=== PATIENT | female | born 1955 | race Caucasian/White ===

== ENCOUNTER 2020-03-25 07:00 | Outpatient (CLI) | payer BC, SELFPAY ==
[2020-03-25 07:39] LABS: Alanine Aminotransferase 71 U/L (4-35); Albumin Level 4.6 g/dL (3.5-5.1); Alkaline Phosphatase 55 U/L (38-126); Aspartate Amino Transferase 110 U/L (14-36); Bilirubin,Total 0.7 mg/dL (0.2-1.3); Blood Urea Nitrogen 16 mg/dL (7-17); Calcium 9.4 mg/dL (8.4-10.2); Carbon Dioxide 30 mmol/L (22-30); Chloride 102 mmol/L (98-107); Cholesterol 169 mg/dL (0-200); Estimated Glomerular Filt Rate > 60; Glucose 111 mg/dL (65-105); HDL Direct 58 mg/dL; Potassium 4.5 mmol/L (3.4-5.0); Sodium 140 mmol/L (137-145); Triglycerides 118 mg/dL (<150)
[2020-03-25 07:50] LABS: LDL Cholesterol Direct 91 mg/dL
[2020-03-25 09:31] LABS: Vitamin D 25 Hydroxy 86.7 ng/mL
== END 2020-03-25 07:01 | disposition home or self-care (01) ==
PROVIDERS: PCP Family Medicine; Visit Provider Family Medicine
DX: E78.1 Pure hyperglyceridemia (principal); I10 Essential (primary) hypertension; E55.9 Vitamin D deficiency, unspecified; E03.9 Hypothyroidism, unspecified
CPT/HCPCS: 36415; 80053; 80061; 82306; 84443

== ENCOUNTER 2020-08-20 08:27 | Outpatient (CLI) | payer BC, SELFPAY ==
[2020-08-20 09:06] LABS: Alanine Aminotransferase 23 U/L (4-35); Albumin Level 4.5 g/dL (3.5-5.1); Alkaline Phosphatase 41 U/L (38-126); Anion Gap 8 mmol/L (8-16); Aspartate Amino Transferase 35 U/L (14-36); Bilirubin,Total 0.5 mg/dL (0.2-1.3); Blood Urea Nitrogen 18 mg/dL (7-17); Calcium 10.4 mg/dL (8.4-10.2); Carbon Dioxide 36 mmol/L (22-30); Chloride 98 mmol/L (98-107); Estimated Glomerular Filt Rate > 60; Glucose 116 mg/dL (65-105); Potassium 4.4 mmol/L (3.4-5.0); Sodium 142 mmol/L (137-145)
[2020-08-20 09:17] LABS: Parathyroid Intact 5.8 pg/mL (7.5-53.5)
[2020-08-20 09:36] LABS: Vitamin D 25 Hydroxy 54.2 ng/mL
== END 2020-08-20 08:28 | disposition home or self-care (01) ==
PROVIDERS: PCP Family Medicine; Visit Provider Internal Medicine Endocrinology, Diabetes & Metabolism
DX: M81.0 Age-related osteoporosis without current pathological fracture (principal)
CPT/HCPCS: 36415; 80053; 82306; 83970

== ENCOUNTER 2021-04-15 08:19 | Outpatient (CLI) | payer MEDICARE, SELFPAY ==
--- NOTE | ~2021-04-15 | MM_ITS ---
EXAMINATION: MM screening pretty BI w haley HISTORY: Screening mammogram TECHNIQUE: Craniocaudal and mediolateral oblique 3-D tomosynthesis images were obtained and synthetic 2-D images were generated. CAD analysis was submitted and interpreted. COMPARISON: 09/28/2019 diagnostic left mammogram and limited left breast ultrasound 09/10/2019 bilateral digital screening mammogram BREAST PARENCHYMAL COMPOSITION: There are scattered areas of fibroglandular density. FINDINGS: There is no evidence of suspicious mass, calcification, or architectural distortion to sugg est malignancy in either breast. There has been no suspicious interval change. IMPRESSION: 1. No mammographic evidence of malignancy. 2. Recommend routine screening mammography in one year. BI-RADS Category 1: Negative Reviewed, dictated and finalized at location A.
--- NOTE | ~2021-04-15 | XR_ITS ---
EXAMINATION: XR chest 2V DATE: 04/15/2021 09:29 INDICATION: Shortness of breath TECHNIQUE: PA and lateral views of the chest are obtained. COMPARISON: 04/12/2019 FINDINGS: The lungs are free of acute opacities. A calcified nodule of the right lung apex likely ref lects old granulomatous disease. There is no pleural effusion or pneumothorax. The cardiomediastinal silhouette is normal. There is moderate thoracic spondylosis. IMPRESSION: 1. No acute cardiopulmonary abnormality. Reviewed, dictated and finalized at location A.
[2021-04-15 09:57] LABS: Alanine Aminotransferase 25 U/L (4-35); Albumin Level 4.4 g/dL (3.5-5.1); Alkaline Phosphatase 41 U/L (38-126); Anion Gap 8 mmol/L (8-16); Aspartate Amino Transferase 37 U/L (14-36); Bilirubin,Total 0.4 mg/dL (0.2-1.3); Blood Urea Nitrogen 13 mg/dL (7-17); Calcium 9.8 mg/dL (8.4-10.2); Carbon Dioxide 30 mmol/L (22-30); Chloride 102 mmol/L (98-107); Cholesterol 190 mg/dL (0-200); Estimated Glomerular Filt Rate > 60; Glucose 102 mg/dL (65-105); HDL Direct 45 mg/dL; Magnesium 1.4 mg/dL (1.6-2.3); Sodium 140 mmol/L (137-145); Triglycerides 208 mg/dL (<150)
[2021-04-15 10:06] LABS: Hemoglobin A1C 5.9 % (<5.7)
[2021-04-15 10:08] LABS: LDL Cholesterol Direct 93 mg/dL
== END 2021-04-15 08:20 | disposition home or self-care (01) ==
LOC: ANHIMG 08:25
PROVIDERS: PCP Family Medicine; Visit Provider Physician Assistant
DX: Z12.31 Encounter for screening mammogram for malignant neoplasm of breast (principal); R73.09 Other abnormal glucose; E78.5 Hyperlipidemia, unspecified; R06.02 Shortness of breath; I10 Essential (primary) hypertension
CPT/HCPCS: 36415; 71046; 77063; 77067; 80053; 80061; 83036; 83735

== ENCOUNTER 2021-06-15 07:54 | Outpatient (CLI) | payer MEDICARE, SELFPAY ==
--- NOTE | ~2021-06-15 | DEXA_ITS ---
Bone Density Report Name: Hector Alvarado Age: 66 Sex: Female Ethnicity: White Date of : 1955 Indication: postmenopausal osteoporosis; monitoring treatment; height loss; prior fracture; hysterectomy; Referring Provider: Олег, Justin Conner Study: Bone densitometry was performed. Exam Date: June 15, 2021 Accession number: [id number] Bone Density: Region BMD T-score Z-score Classification AP Spine (L1-L4) 0.814 -2.1 -0.4 Osteopenia Femoral Neck (Left) 0.660 -1.7 -0.2 Osteopenia Total Hip (Left) 0.805 -1.1 0.1 Osteopenia Total Hip Bilateral Avg 0.801 -1.2 0.1 Osteopenia Femoral Neck (Right) 0.616 -2.1 -0.6 Osteopenia Total Hip (Right) 0.796 -1.2 0.0 Osteopenia World Health Organization criteria for BMD impression classify patients as: Normal (T-score at or above -1.0), Osteopenia (T-score between -1.0 and -2.5), or Osteoporosis (T-score at or below -2.5). 10-year Fracture Risk: FRAX not reported because: Treated for osteoporosis Previous Exams: Region Exam Age BMD T-score BMD Change BMD Change Date g/cm2 vs Baseline vs Previous AP Spine(L1-L4) 06/15/2021 66 0.814 -2.1 0.047(6.2%)* 0.047(6.2%)* 09/10/2019 64 0.766 -2.6 Total Hip(Left) 06/15/2021 66 0.805 -1.1 0.012(1.5%) 0.012(1.5%) 09/10/2019 64 0.793 -1.2 Total Hip(Right) 06/15/2021 66 0.796 -1.2 0.008(1.1%) 0.008(1.1%) 09/10/2019 64 0.787 -1.3 *Denotes significance at 95% confidence level, LSC for AP Spine = 0.022 g/cm2, LSC for Total Hip = 0.027 g/cm2 Clinical Information Provided by Patient: Has had a low trauma fracture Is being treated for osteoporosis Has used the following medications: Fosamax (i.e. alendronate), Vitamin D, Calcium Has the following medical conditions: Hysterectomy Patient maximum height was 66 Menopause Age: 42 Onset of menses at age 17 Number of children 1 Impression: The patient has low bone mass, based on the Total Spine T-score. The patient has risk factors, including: previous fracture. No significant bone loss was observed. Discussion: PATIENT UNDER TREATMENT WITH NO SIGNIFICANT BMD LOSS SINCE LAST EXAM. In an untreated patient, BMD typically declines with age. A lack of decline or gain is usually a sign that treatment is efficacious and fracture risk is reduced. It is important to ask patients whether they are taking their medications and to encourage continued and appropriate compliance with their osteoporosis therapies to reduc
== END 2021-06-15 07:55 | disposition home or self-care (01) ==
LOC: ANHIMG 07:57
PROVIDERS: PCP Family Medicine; Visit Provider Internal Medicine Endocrinology, Diabetes & Metabolism
DX: M81.0 Age-related osteoporosis without current pathological fracture (principal); M85.88 Other specified disorders of bone density and structure, other site; M85.852 Other specified disorders of bone density and structure, left thigh; M85.851 Other specified disorders of bone density and structure, right thigh
CPT/HCPCS: 77080

== ENCOUNTER 2021-08-10 08:31 | Outpatient (CLI) | payer MEDICARE, SELFPAY ==
--- NOTE | 2021-08-10 08:35 | ECG_ITS ---
Measurements Intervals [place] Rate: 82 P: 87 LA: 221 QRS: -34 QRSD: 86 T: 49 QT: 369 QTc: 433 Interpretive Statements SINUS RHYTHM WITH FIRST DEGREE AV BLOCK LEFT AXIS DEVIATION DELAYED PRECORDIAL R/S TRANSITION LOW QRS VOLTAGE IN PRECORDIAL LEADS INFERIOR INFARCT, AGE INDETERMINATE BASELINE ARTIFACT- I, II, III ABNORMAL ECG Electronically Signed On 08-10-2021 9:30:53 CDT by Vu Troncoso D.O.
[2021-08-10 09:27] LABS: Hemoglobin A1C 5.8 % (<5.7)
[2021-08-10 09:35] LABS: Alanine Aminotransferase 37 U/L (4-35); Albumin Level 4.6 g/dL (3.5-5.1); Alkaline Phosphatase 41 U/L (38-126); Anion Gap 6 mmol/L (8-16); Aspartate Amino Transferase 45 U/L (14-36); Bilirubin,Total 0.4 mg/dL (0.2-1.3); Blood Urea Nitrogen 13 mg/dL (7-17); Carbon Dioxide 31 mmol/L (22-30); Chloride 103 mmol/L (98-107); Cholesterol 173 mg/dL (0-200); Estimated Glomerular Filt Rate > 60; Glucose 108 mg/dL (65-110); HDL Direct 38 mg/dL; Magnesium 1.9 mg/dL (1.6-2.3); Potassium 4.3 mmol/L (3.4-5.0); Sodium 140 mmol/L (137-145); Triglycerides 209 mg/dL (<150)
[2021-08-10 09:45] LABS: LDL Cholesterol Direct 99 mg/dL
[2021-08-13 23:54] LABS: Vitamin D 1,25 (OH)2 Total 47 pg/mL (18-72); Vitamin D2 1,25 (OH)2 <8 pg/mL; Vitamin D3 1,25 (OH)2 47 pg/mL
== END 2021-08-10 08:32 | disposition home or self-care (01) ==
LOC: ANHLAB 08:35
PROVIDERS: PCP Family Medicine; Visit Provider Physician Assistant
DX: E55.9 Vitamin D deficiency, unspecified (principal); E78.5 Hyperlipidemia, unspecified; I10 Essential (primary) hypertension; R73.9 Hyperglycemia, unspecified; I44.0 Atrioventricular block, first degree
CPT/HCPCS: 36415; 80053; 80061; 82652; 83036; 83735; 93005

== ENCOUNTER 2021-09-29 08:34 | Emergency (ER) | payer MEDICARE, SELFPAY ==
[2021-09-29 08:52] VITALS: BP 151/90; PULSE 95; RESP 16; TEMP 36.7; O2SAT 97
--- NOTE | 2021-09-29 09:02 | ED.SKABFB ---
HPI - Skin/Abscess/Foreign Bdy General Chief complaint: Skin/Abscess/Foreign Body Stated complaint: Insect bite on Hand Time Seen by Provider: 09/29/21 08:55 Source: patient and RN notes reviewed Mode of arrival: ambulatory Limitations: no limitations History of Present Illness HPI narrative: Hector is a 66-year-old female patient who ambulated into the [facility]. Patient states she was working in her yard yesterday and woke up with 2-3 bites on her right hand wrist and right fifth finger. The area on her right fifth finger is a small abrasion and open area. Patient states that patient states she has not used any [id number] medications at home. Patient states the area is warm and hot to touch. Patient states she had a similar issue with a spider bite last year that turned into cellulitis MD complaint: insect bite/sting Related Data Home Medications Medication Instructions Recorded Confirmed alendronate 70 mg tablet 70 mg PO WEEKLY 09/10/20 08/07/21 Allergies Allergy/AdvReac Type Severity Reaction Status Date / Time latex Allergy Unknown Rash Verified 09/29/21 09:03 Review of Systems Review of Systems: CONSTITUTIONAL: Denies body aches, fever, chills, or sweats. EYES: Denies visual changes, redness, or discharge. ENT: Denies rhinorrhea, congestion, sore throat, or otalgia. CARDIOVASCULAR: Denies chest pain, palpitations, or edema. RESPIRATORY: Denies cough or dyspnea. GASTROINTESTINAL: Denies abdominal pain, nausea, vomiting, or diarrhea. GENITOURINARY: Denies dysuria or hematuria. SKIN: Denies rash, itching, + warm, red, bites on right hand, wrist, and fifth finger MUSCULOSKELETAL: Denies back pain, joint pain, or myalgia. NEUROLOGIC: Denies headache, numbness, tingling, or weakness. PSYCH: Denies depression or anxiety. All systems reviewed & are unremarkable except as noted in HPI and below PMFSH Past Medical History Medical History Abnormal mammogram Brain aneurysm had coiling done Depression Gastric outlet obstruction Gastroesophageal reflux disease without esophagitis GERD (gastroesophageal reflux disease) Hiatal hernia Hypertension Osteoporosis Positive colorectal cancer screening using Cologuard test Situational depression Surgical History Surgical History H/O colonoscopy (~09/2019) repeat 5 years H/O: hysterectomy Family History Family History Father Family history of emphysema Family history of alcoholism Mother Family history of chronic obstructive pulmonary disease Other Family history of dementia Hypertension Social History Social History Social History: She lives at home. Retired. She does have living will and POA- her daughter, Hallie Stroud. Smoking status: Former smoker Second hand tobacco smoke exposure: Yes Smoking end date: 10/24/14 Alcohol intake: never Comments At time of signature, I have reviewed and agree with nursing past medical, surgical, social and family history unless otherwise noted. Please see nursing chart for further information. There is no relevant family history pertinent to the presenting complaint Exam Narrative: GENERAL: Well-appearing, well-nourished, and in no acute distress. HEAD: Normocephalic, atraumatic. EYES: EOMI. No redness or drainage. Conjunctivae normal. ENT: Mucous membranes pink and moist. Nares clear. No rhinorrhea. NECK: Normal AROM. Supple. No lymphadenopathy. ABDOMEN: Soft, nontender, nondistended, MUSCULOSKELETAL: No bony tenderness. EXTREMITIES: Normal range of motion. No edema. SKIN: Warm, dry, no rash. Capillary refill normal. Normal skin turgor. small 1cm erythemic area to right wrist, right fifth finger, and right medial palm. warm to touch, NEURO: No focal deficits. Lex
[2021-09-29] MEDS: methylPREDNISolone SOD SUCC 125 MG VIAL IM (09:13)
== END 2021-09-29 09:22 | disposition home or self-care (01) ==
PROVIDERS: Emergency Provider Nurse Practitioner Family; PCP Family Medicine
DX: L03.113 Cellulitis of right upper limb (principal); L03.011 Cellulitis of right finger; L25.9 Unspecified contact dermatitis, unspecified cause; Z87.891 Personal history of nicotine dependence; K21.9 Gastro-esophageal reflux disease without esophagitis; I10 Essential (primary) hypertension; M81.0 Age-related osteoporosis without current pathological fracture
CPT/HCPCS: 96372; 99213; G0463; J2930

== ENCOUNTER 2021-10-05 08:11 | Outpatient (CLI) | payer MEDICARE, SELFPAY ==
--- NOTE | ~2021-10-05 | NM_ITS ---
EXAMINATION: NM andrzej stress w perfusion DATE: 10/05/2021 11:13 INDICATION: Abnormal electrocardiogram TECHNIQUE: Rest images were obtained following intravenous administration of 9.8 mCi Tc99m tetrofosmi n (Myoview). The patient was infused intravenously with Lexiscan (Regadenoson). Then, 30.8 mCi Tc99m tetrofosmin (Myoview) was administered intravenously, and stress images were obtained. Data was recon structed into short axis and horizontal and vertical long axis SPECT images. Gated SPECT images were also obtained. COMPARISON: None. FINDINGS: There is no definite reversible or fixed perfusion abnormality to suggest ischemia or infar ction. There is normal left ventricular chamber size, wall motion and ejection fraction. Left ventr icular ejection fraction measures >70%. IMPRESSION: 1. Normal myocardial perfusion at rest and during stress. 2. Left ventricular ejection fraction measuring >70%. Reviewed, dictated and finalized at location A. YSIS REGISTERED NURSE
--- NOTE | 2021-10-05 08:27 | EST_ITS ---
Patient Info Name: Hector Alvarado Age: 66 years : 1955 Gender: Female Ht: 65 in Wt: 204 lbs BSA: 2.10 m2 HR: 80 bpm BP: 121 / 85 mmHg Heart Rhythm: Sinus Rhythm Exam Date: 10/05/2021 10:07 AM Exam Location: [facility] Stress Patient Status: Outpatient Admit Date: 10/05/2021 Staff Ordering Physician: Bianca Hardy PA-C Attending Provider: iBanca Hardy PA-C Exercise Technologist: Iliana Dong CT Exercise Physician: Vu Troncoso DO Exam Type: CA stress andrzej w NM Study Info Indications R94.31 - Abnormal electrocardiogram ECG EKG A regadenoson stress test was performed. Summary 1. 1. Negative lexiscan stress test for ischemic ST changes by ECG criteria. 2. 2. Transient ectopic atrial tachycardia with Lexiscan. 3. 3. Nuclear scan to follow and will be reported separately. Please correlate with it. 4. 4. Patient informed of the above results. Protocol: Lexiscan Stress ECG Details Stage: REST Duration (min): 0 min : 54 sec HR (bpm): 82 SBP (mmHg): 121 DBP (mmHg): 85 Stage: REST Duration (min): 1 min : 21 sec HR (bpm): 78 SBP (mmHg): 121 DBP (mmHg): 85 Stage: REST Duration (min): 9 min : 50 sec HR (bpm): 75 SBP (mmHg): 121 DBP (mmHg): 85 Stage: STAGE 1 Duration (min): 0 min : 59 sec HR (bpm): 110 SBP (mmHg): 122 DBP (mmHg): 99 Stage: RECOVERY Duration (min): 1 min : 0 sec HR (bpm): 102 SBP (mmHg): 122 DBP (mmHg): 99 Stage: RECOVERY Duration (min): 2 min : 0 sec HR (bpm): 97 SBP (mmHg): 122 DBP (mmHg): 99 Stage: RECOVERY Duration (min): 3 min : 0 sec HR (bpm): 93 SBP (mmHg): 139 DBP (mmHg): 82 Stage: RECOVERY Duration (min): 3 min : 57 sec HR (bpm): 100 SBP (mmHg): 139 DBP (mmHg): 82 Rest HR: 75 bpm Peak HR: 118 bpm Rest Sys BP: 121 mmHg Peak Sys BP: 139 mmHg Max Pred HR: 155 bpm % Max Pred HR: 76 % Target HR: 132 bpm Max RPP: 16,402 bpm*mmHg Termination Reason: Completed protocol Cardiac Symptoms: Shortness of breath, Nausea Total Time: 1 min : 0 sec Rest Aceves BP: 85 mmHg Peak Aceves BP: 82 mmHg Total Dose: 0.4 mg Resting ECG Sinus rhythm, cannot r/o septal infarct, borderline T wave in high lateral leads. Stress ECG No ST changes. Arrhythmias Transient ectopic atrial tachycardia with lexiscan. Report Signatures
== END 2021-10-05 08:12 | disposition home or self-care (01) ==
LOC: ANHCARD 08:15
PROVIDERS: PCP Family Medicine; Visit Provider Physician Assistant
DX: R94.31 Abnormal electrocardiogram [ECG] [EKG] (principal)
CPT/HCPCS: 78452; 93017; A9502; J2785

== ENCOUNTER 2022-02-09 12:13 | Outpatient (CLI) | payer MEDICARE, SELFPAY ==
--- NOTE | ~2022-02-09 | XR_ITS ---
EXAMINATION: HAND-GATITO ARTHRITIS 3+VIEWS DATE: 02/09/2022 12:52 INDICATION: Chronic bilateral hand pain TECHNIQUE: Posteroanterior, lateral, and oblique views of the left and of the right hands as well as a ballcatchers view of both hands were obtained. COMPARISON: None. FINDINGS: 2 mm ulnar positive variance at both the left and right wrists. Alignment is otherwise normal at the bilateral hands. No fracture. 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 Mild osteoarthritis involving the ma jority the remaining joints in the bilateral hands and wrists. No erosions to suggest inflammatory ar thritis. IMPRESSION: 1. Typical distribution of polyarticular osteoarthritis, severe at the left first carpometacarpal ana nt and mild to moderate at multiple additional joints at the bilateral hands and wrists. Reviewed, dictated and finalized at location A. IMPRESSION: 1. Typical distribution of polyarticular osteoarthritis, severe at the left fir st carpometacarpal joint and mild to moderate at multiple additional joints at the bilateral hands and wrists.
== END 2022-02-09 12:14 | disposition home or self-care (01) ==
LOC: ANHIMG 12:21
PROVIDERS: PCP Family Medicine; Visit Provider Physician Assistant
DX: M79.643 Pain in unspecified hand (principal); M19.042 Primary osteoarthritis, left hand; M19.041 Primary osteoarthritis, right hand
CPT/HCPCS: 73130

== ENCOUNTER 2022-02-12 07:42 | Outpatient (CLI) | payer MEDICARE, SELFPAY ==
[2022-02-12 08:27] LABS: Alanine Aminotransferase 56 U/L (4-35); Alkaline Phosphatase 37 U/L (38-126); Anion Gap 7 mmol/L (8-16); Aspartate Amino Transferase 80 U/L (14-36); Bilirubin,Total 0.4 mg/dL (0.2-1.3); Blood Urea Nitrogen 20 mg/dL (7-17); Calcium 8.5 mg/dL (8.4-10.2); Carbon Dioxide 34 mmol/L (22-30); Chloride 99 mmol/L (98-107); Cholesterol 150 mg/dL (0-200); Estimated Glomerular Filt Rate > 60; Glucose 101 mg/dL (65-110); HDL Direct 39 mg/dL; Potassium 3.6 mmol/L (3.4-5.0); Sodium 140 mmol/L (137-145); Triglycerides 180 mg/dL (<150)
[2022-02-12 08:31] LABS: Hemoglobin A1C 5.5 % (<5.7)
[2022-02-12 08:38] LABS: LDL Cholesterol Direct 74 mg/dL
== END 2022-02-12 07:43 | disposition home or self-care (01) ==
PROVIDERS: PCP Family Medicine; Visit Provider Physician Assistant
DX: I10 Essential (primary) hypertension (principal); Z13.1 Encounter for screening for diabetes mellitus; R73.03 Prediabetes; Z13.220 Encounter for screening for lipoid disorders
CPT/HCPCS: 36415; 80053; 80061; 83036

== ENCOUNTER 2022-02-16 08:36 | Outpatient (CLI) | payer MEDICARE, SELFPAY ==
[2022-02-16 09:38] LABS: Alanine Aminotransferase 51 U/L (4-35); Albumin Level 4.5 g/dL (3.5-5.1); Alkaline Phosphatase 40 U/L (38-126); Aspartate Amino Transferase 54 U/L (14-36); Bilirubin,Total 0.2 mg/dL (0.2-1.3)
[2022-02-16 10:28] LABS: Hepatitis B Surface Antigen Negative (Negative)
[2022-02-16 10:34] LABS: HAV RESULT Negative (Negative); Hepatitis B Core IgM Result Negative (Negative)
[2022-02-16 10:46] LABS: Hepatitis C Virus Antibody Negative (Negative)
== END 2022-02-16 08:37 | disposition home or self-care (01) ==
LOC: ANHLAB 08:46
PROVIDERS: PCP Family Medicine; Visit Provider Physician Assistant
DX: R79.89 Other specified abnormal findings of blood chemistry (principal); R10.9 Unspecified abdominal pain
CPT/HCPCS: 36415; 80074; 80076

== ENCOUNTER 2022-03-02 08:42 | Outpatient (CLI) | payer MEDICARE, SELFPAY ==
--- NOTE | ~2022-03-02 | US_ITS ---
US abdomen limited INDICATION: Abdomen pain. Elevated liver enzymes. PROCEDURE: Realtime right upper abdominal ultrasound. COMPARISON: CT dated 04/12/2019 FINDINGS: Pancreatic echogenicity is slightly increased, nonspecific. No discrete pancreatic mass. L iver echotexture is increased, consistent with fatty infiltration. There is normal directional flow in the portal vein. The gallbladder is normal without stones, gallbladder wall thickening or pericholecystic fluid. Comm on bile duct measures 3 mm. No sonographic Hamilton's sign. IMPRESSION: 1: Hepatic steatosis. Reviewed, dictated and finalized at location A. IMPRESSION: 1: Hepatic steatosis.
== END 2022-03-02 08:43 | disposition home or self-care (01) ==
PROVIDERS: PCP Family Medicine; Visit Provider Physician Assistant
DX: R79.89 Other specified abnormal findings of blood chemistry (principal); K76.0 Fatty (change of) liver, not elsewhere classified
CPT/HCPCS: 76705

== ENCOUNTER 2022-04-16 10:04 | Outpatient (CLI) | payer MEDICARE, SELFPAY ==
--- NOTE | ~2022-04-16 | MM_ITS ---
EXAMINATION: MM screening pretty BI w haley HISTORY: Screening mammogram TECHNIQUE: Craniocaudal and mediolateral oblique 3-D tomosynthesis images were obtained and synthetic 2-D images were generated. CAD analysis was submitted and interpreted. COMPARISON: 04/15/2021 bilateral screening mammogram 09/28/2019 diagnostic left mammogram and limited left breast ultrasound 09/10/2019 bilateral screening mammogram BREAST PARENCHYMAL COMPOSITION: There are scattered areas of fibroglandular density. FINDINGS: There is no evidence of suspicious mass, calcification, or architectural distortion to sugg est malignancy in either breast. There has been no suspicious interval change. IMPRESSION: 1. No mammographic evidence of malignancy. 2. Recommend routine screening mammography in one year. BI-RADS Category 1: Negative Reviewed, dictated and finalized at location A.
== END 2022-04-16 10:05 | disposition home or self-care (01) ==
LOC: ANHIMG 10:07
PROVIDERS: PCP Family Medicine; Visit Provider Physician Assistant
DX: Z12.31 Encounter for screening mammogram for malignant neoplasm of breast (principal)
CPT/HCPCS: 77063; 77067

== ENCOUNTER 2022-08-19 07:36 | Outpatient (CLI) | payer MEDICARE, SELFPAY ==
[2022-08-19 08:12] LABS: Alanine Aminotransferase 47 U/L (6-35); Albumin Level 4.4 g/dL (3.5-5.1); Alkaline Phosphatase 47 U/L (38-126); Anion Gap 9 mmol/L (8-16); Aspartate Amino Transferase 54 U/L (14-36); Bilirubin,Total 0.4 mg/dL (0.2-1.3); Blood Urea Nitrogen 14 mg/dL (7-17); Calcium 8.8 mg/dL (8.4-10.2); Carbon Dioxide 29 mmol/L (22-30); Chloride 102 mmol/L (98-107); Cholesterol 163 mg/dL (0-200); Estimated Glomerular Filt Rate > 60; Glucose 119 mg/dL (65-110); HDL Direct 43 mg/dL; Potassium 4.4 mmol/L (3.4-5.0); Sodium 140 mmol/L (137-145); Triglycerides 178 mg/dL (<150)
[2022-08-19 08:23] LABS: LDL Cholesterol Direct 93 mg/dL
== END 2022-08-19 07:37 | disposition home or self-care (01) ==
PROVIDERS: PCP Family Medicine; Visit Provider Physician Assistant Medical
DX: E78.2 Mixed hyperlipidemia (principal)
CPT/HCPCS: 36415; 80053; 80061

== ENCOUNTER 2022-10-21 08:52 | Emergency (ER) | payer MEDICARE, SELFPAY ==
[2022-10-21 09:08] VITALS: BP 94/76; PULSE 100; RESP 20; TEMP 37.2; O2SAT 98
--- NOTE | 2022-10-21 09:37 | ED.GENADULT ---
HPI - General Adult General Chief complaint: Upper Respiratory Infection Stated complaint: runny nose, cough, sore throat Time Seen by Provider: 10/21/22 09:37 Source: patient, RN notes reviewed and old records reviewed Mode of arrival: ambulatory Limitations: no limitations History of Present Illness HPI narrative: 67-year-old female presents to the [facility] with complaints of runny nose, cough, sore throat for 2 days. States that she has not taken anything due to work and being on work call. Denies fevers, chest pain. Denies abdominal pain, nausea vomiting or diarrhea. Related Data Home Medications Medication Instructions Recorded Confirmed zoledronic acid 5 mg/100 mL in See Rx Instructions .Route .COMPLEX 02/09/22 10/21/22 mannitol 5 %-water intravenous piggybck (Reclast) Allergies Allergy/AdvReac Type Severity Reaction Status Date / Time latex Allergy Unknown Rash Verified 10/21/22 09:02 Review of Systems Review of Systems: All systems reviewed & are unremarkable except as noted in HPI and below Constitutional: Constitutional: Reports as per HPI and Reports fatigue Eyes: Eyes: Reports no additional eye complaints ENT: Reports as per HPI, Reports nasal congestion and Reports sore throat Cardiovascular: Cardiovascular: Reports no additional cardiovascular complaints, Denies chest pain and Denies dyspnea Respiratory: Respiratory: Reports as per HPI, Denies chest congestion, Reports cough and Denies dyspnea Gastrointestinal: Gastrointestinal: Reports no additional gastrointestinal complaints, Denies abdominal pain, Denies nausea and Denies vomiting Musculoskeletal: Musculoskeletal: Reports no additional musculoskeletal complaints Integumentary/Breasts: Skin/Breast: Reports system reviewed and no additional complaints, except as docu Neurologic: Reports system reviewed and no additional complaints, except as documented Psychiatric: Psychiatric: Reports no additional psychiatric complaints Allergic/Immunologic: Allergic/Immunologic: Reports no additional allergic/immunologic complaints PMFSH Past Medical History Medical History Abnormal mammogram Brain aneurysm had coiling done Depression Gastric outlet obstruction Gastroesophageal reflux disease without esophagitis GERD (gastroesophageal reflux disease) Hiatal hernia Hypertension Osteoporosis Positive colorectal cancer screening using Cologuard test Situational depression Surgical History Surgical History H/O colonoscopy (~09/2019) repeat 5 years H/O: hysterectomy Family History Family History Father Family history of emphysema Family history of alcoholism Mother Family history of chronic obstructive pulmonary disease Other Family history of dementia Hypertension Social History Social History Social History: She lives at home. Retired. She does have living will and POA- her daughter, Hallie Stroud. Smoking status: Never smoker Second hand tobacco smoke exposure: Yes Smoking end date: 10/24/14 Alcohol intake: never Substance use: never Substance use type: does not use Lack of Transportation: No Lack of Food: Never True Current Housing: I Have Housing Concerned About Future Housing: No Difficulty Paying Gas/Electric Bills: No Difficulty Paying for Meds: No Currently Unemployed: No Education: Decline to Answer Difficulty w/ Childcare or Family Care: No Gender identity (if verbalized by the patient): Female Spiritual care concerns: No Agree to blood products: Yes Comments At the time of my signature, I reviewed and agree with the nursing past medical, surgical, social, and family history. There is no relevant family history pertinent to the patient complaint. Ex
== END 2022-10-21 10:28 | disposition home or self-care (01) ==
PROVIDERS: Emergency Provider Nurse Practitioner; PCP Family Medicine
DX: J32.9 Chronic sinusitis, unspecified (principal); J40 Bronchitis, not specified as acute or chronic; J06.9 Acute upper respiratory infection, unspecified; Z20.822 Contact with and (suspected) exposure to COVID-19; Z87.891 Personal history of nicotine dependence; K21.9 Gastro-esophageal reflux disease without esophagitis; I10 Essential (primary) hypertension; M81.0 Age-related osteoporosis without current pathological fracture
CPT/HCPCS: 87081; 87426; 87804; 87880; 99213; C9803; G0463

== ENCOUNTER 2022-12-16 14:34 | Inpatient (IN) | payer MEDICARE, SELFPAY ==
[2022-12-16] VITALS (43 sets, daily range): BP systolic 76–117; BP diastolic 66–99; PULSE 96–208; RESP 13–36; TEMP 36.1–37.1; O2SAT 90–100; BMI 32.0
--- NOTE | ~2022-12-16 | CT_ITS ---
EXAMINATION: CTA chest PE protocol DATE: 12/16/2022 16:46 INDICATION: Tachycardia. TECHNIQUE: Computed tomography angiography (CTA) of the chest was performed with 100 mL Omnipaque-350 intravenous contrast timed to evaluate the pulmonary arteries. Coronal maximum intensity projection 3D-reconstructions were created by the technologist. Automated exposure control and iterative reconst ruction technique were employed. The dose-length product was 496.91 mGy-cm. COMPARISON: CT abdomen and pelvis 04/12/2019 FINDINGS: There is mild scarring at the lung apices. There is mild emphysema. There is smooth septal thickening in the lungs with groundglass opacities in the inferior lungs, consistent with pulmonary e yoshi. There are small pleural effusions. Cardiomegaly is noted. There is a small pericardial effusion . There is no pulmonary embolus. There is mild thoracic spondylosis. IMPRESSION: 1. No pulmonary embolus. 2. Moderate pulmonary edema. 3. Small pleural effusions. 4. Mild emphysema. 5. Small pericardial effusion. Reviewed, dictated and finalized at location A. LE DIPPER
--- NOTE | ~2022-12-16 | CT_ITS ---
EXAMINATION: CTA chest PE protocol DATE: 12/18/2022 13:28 INDICATION: Elevated d-dimer TECHNIQUE: Computed tomography angiography (CTA) of the chest was performed with 100 mL Omnipaque-350 intravenous contrast timed to evaluate the pulmonary arteries. Coronal maximum intensity projection 3D-reconstructions were created by the technologist. Automated exposure control and iterative reconst ruction technique were employed. Exam dose: 658.32 mGy-cm total exam DLP. COMPARISON: December 16, 2022 CT pulmonary scan FINDINGS: There is diagnostic contrast enhancement of the pulmonary arteries. Due to motion the perip heral pulmonary arteries are not optimally evaluated compared to 12/16/2022, but no main pulmonary art damian, lobar or segmental pulmonary artery embolism is identified. Cardiomegaly and mild pericardial effusion are noted. No thoracic aortic aneurysm is evident. There is atherosclerosis of the aorta, great vessels and raoul nary arteries. Mild prominence of the hilar and mediastinal lymph nodes may be reactive. Mild bilateral apical scarring. Mild emphysematous changes of the lungs. Bilateral lower lobe dependent atelectasis. Small pleural effusions, right greater than left. Diffuse idiopathic skeletal hyperostosis of the thoracic spine. Mild anterior wedge chronic compressi on fracture deformity of T11. IMPRESSION: Limited evaluation of the peripheral pulmonary arteries due to motion; no central, lobar or segmental pulmonary embolism Cardiomegaly, mild pericardial effusion Mild pleural effusions, right greater than left Mild emphysema Bilateral dependent mild lower lobe atelectasis Reviewed, dictated and finalized at Location A. Reviewed, dictated and finalized at location A. ICAL PROGRAM MANAGER IMPRESSION: Limited evaluation of the peripheral pulmonary arteries due to mot ion; no central, lobar or segmental pulmonary embolism Cardiomegaly, mild pericardial effusion Mild pleural effusions, right greater than left Mild emphysema Bilateral dependent mild lower lobe atelectasis
--- NOTE | ~2022-12-16 | US_ITS ---
EXAMINATION: US venous doppler [facility] DATE: 12/18/2022 10:54 INDICATION: elevated d dimer . TECHNIQUE: Grayscale images without and with compression and Doppler images of the bilateral lower ex tremity veins were obtained. COMPARISON: None FINDINGS: The right common femoral vein, profunda (deep) femoral vein, femoral vein, popliteal vein, peroneal v ein, posterior tibial veins, gastrocnemius vein, and greater saphenous vein are patent. The left common femoral vein, profunda femoral vein, femoral vein, popliteal vein, peroneal vein, pos terior tibial veins, gastrocnemius vein, and greater saphenous vein are patent. IMPRESSION: 1. Patent bilateral lower extremity veins. No evidence of deep venous thrombosis. Reviewed, dictated and finalized at location K. NG CAR CONDUCTOR IMPRESSION: 1. Patent bilateral lower extremity veins. No evidence of deep venous thrombos is.
--- NOTE | 2022-12-16 14:43 | ECG_ITS ---
Measurements Intervals [place] Rate: 206 P: PA: 0 QRS: -40 QRSD: 98 T: 130 QT: 227 QTc: 421 Interpretive Statements ATRIAL FIBRILLATION WITH RAPID VENTRICULAR RESPONSE MARKED LEFT AXIS DEVIATION [QRS AXIS < -30] LOW QRS VOLTAGE IN PRECORDIAL LEADS [QRS DEFLECTION < 1.0 mV IN CHEST LEADS] CONSIDER PREVIOUS ANTERIOR [place] COMPARED TO ECG 08/10/2021 09:15:48 ATRIAL FIBRILLATION NOW REPLACES SINUS RHYTHM Electronically Signed On 12-17-2022 15:04:49 [employer] by Jd Saldaña M.D.
--- NOTE | 2022-12-16 14:43 | ED.GENADULT ---
HPI - General Adult General Chief complaint: Chest Pain Stated complaint: diff breathing Time Seen by Provider: 12/16/22 14:41 History of Present Illness HPI narrative: 67-year-old female with history of hypertension and GERD presented to the [facility] for evaluation of worsening shortness of breath and tachycardia. Patient denies any prior COVID infection patient reports she just recently flew back from [place] and started having worsening shortness of breath. Patient states she called EMS due to worsening heart rate worsening shortness of breath and some associated chest pain. Patient reports she flew in from [place] on Tuesday and started having worsening shortness of breath on Tuesday. Patient did not measure her heart rate. Patient states the respiratory symptoms worsens this morning. Patient denies any chest pain but reports she did have chest pressure and chest tightness during this. Patient has no prior history of MA. Patient reports did have a stress test that was negative approximate 1 year ago. Related Data Home Medications Medication Instructions Recorded Confirmed zoledronic acid 5 mg/100 mL in See Rx Instructions .Route .COMPLEX 02/09/22 10/21/22 mannitol 5 %-water intravenous piggybck (Reclast) Allergies Allergy/AdvReac Type Severity Reaction Status Date / Time latex Allergy Unknown Rash Verified 10/21/22 09:02 Review of Systems Review of Systems: CONSTITUTIONAL: Denies fever, chills, or sweats. EYES: Denies visual changes, redness, or discharge. ENT: Denies rhinorrhea, congestion, sore throat, or otalgia. CARDIOVASCULAR: See HPI RESPIRATORY: See HPI GASTROINTESTINAL: Denies abdominal pain, nausea, vomiting, or diarrhea. GENITOURINARY: Denies dysuria or hematuria. SKIN: Denies rash or itching. MUSCULOSKELETAL: Denies back pain, joint pain, or myalgia. NEUROLOGIC: Denies headache, numbness, or weakness. [facility] Past Medical History Medical History (Updated 12/16/22 @ 20:15 by Maria Victoria Wright NP) Abnormal mammogram Brain aneurysm had coiling done Depression Diverticulosis Gastric outlet obstruction Gastroesophageal reflux disease without esophagitis GERD (gastroesophageal reflux disease) Hiatal hernia Hypertension Osteoporosis Positive colorectal cancer screening using Cologuard test Situational depression Surgical History Surgical History (Updated 12/16/22 @ 20:05 by Maria Victoria Wright NP) Cataract extraction status H/O colonoscopy (~09/2019) repeat 5 years H/O rectal polypectomy H/O: hysterectomy History of appendectomy History of bladder surgery S/P ORIF (open reduction internal fixation) fracture right humerus Family History Family History Father Family history of emphysema Family history of alcoholism Mother Family history of chronic obstructive pulmonary disease Sibling Brain aneurysm Other Family history of dementia Hypertension Social History Social History (Updated 12/16/22 @ 20:01 by Maria Victoria Wrgiht NP) Social History: She lives at home. She is recently . 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 She does have living will and POA- her daughter, Hallie Stroud. She lost her 2 step children. They not too long ago. code status full code Smoking status: Never smoker Second hand tobacco smoke exposure: Yes Smoking end date: 10/24/14 Alcohol intake: never Substance use: never Substance use type: does not use Lack of Transportation: No Lack of Food: Never True Current Housing: I Have Housing Concerned About Future Housing: No Difficulty Paying Gas/Electric Bills: No Difficulty Paying for Meds: No Currently Unemployed: No Education: Decline to Answer Difficulty w/ Childcare or Family Care: No Living arrangements: with family Gender identity (if verbalized by the patient): Female Spiritual care concerns
[2022-12-16] MEDS: dilTIAZem HCl INJ 25 MG/5 ML VIAL 10 MG IV PUSH ×2 (14:47→16:08)
[2022-12-16] MEDS: SODIUM CHLORIDE 0.9% IV 1,000 ML 999 ML IV CONT (14:49)
[2022-12-16] MEDS: dilTIAZem 100 MG/100 ML 100 MG/100 ML BAG IV CONT (14:50)
--- NOTE | 2022-12-16 14:53 | PC.NURSE ---
erp at bedside, verbal order to titrade cardizem up to 10 at this time.
--- NOTE | 2022-12-16 15:09 | PC.NURSE ---
per erp notification, titrate cardizem to 15 at this time for rate.
[2022-12-16] MEDS: ASPIRIN 81 MG CHEWABLE TABLET 324 MG PO (15:33)
[2022-12-16 15:52] LABS: Basophils Absolute Auto 0.1 K/mm3 (0.0-0.1); Basophils Percent Auto 0.6 % (0.2-1.2); Eosinophils Percent Auto 0.1 % (0-4.4); Hematocrit 41.1 % (37.0-47.0); Hemoglobin 13.9 g/dL (12.0-15.0); Immature Granulocyte Absolute 0.05 K/mm3 (0.00-0.031); Immature Granulocyte Percent A 0.6 % (0-0.5); Lymphocytes Absolute Auto 0.64 K/mm3 (0.9-3.2); Lymphocytes Percent Auto 7.6 % (18.3-44.2); Mean Corpuscular HGB Conc 33.8 g/dl (32-36); Mean Corpuscular Hemoglobin 32.5 pg (26-34); Mean Platelet Volume 10.9 fl (7.4-10.4); Monocytes Absolute Auto 0.6 K/mm3 (0.1-0.6); Monocytes Percent Auto 6.5 % (2.6-8.5); Neutrophils Absolute Auto 7.2 K/mm3 (1.3-6.7); Neutrophils Percent Auto 84.6 % (45.5-73.1); Platelet Count Result 144 k/mm3 (150-375); Red Blood Count 4.28 M/mm3 (4.2-5.4); Red Cell Distribution Width 12.9 % (11.5-14.5); White Blood Count 8.5 K/mm3 (4.5-10.0)
[2022-12-16 16:02] LABS: INR 1.1; Partial Thromboplastin Time 26.5 SECONDS (22.3-36.8); Prothrombin Time 14.1 Seconds (11.1-14.7)
[2022-12-16 16:07] LABS: Alanine Aminotransferase 34 U/L (6-35); Albumin Level 4.3 g/dL (3.5-5.1); Alkaline Phosphatase 38 U/L (38-126); Anion Gap 9 mmol/L (8-16); Aspartate Amino Transferase 39 U/L (14-36); Bilirubin,Total 0.5 mg/dL (0.2-1.3); Blood Urea Nitrogen 13 mg/dL (7-17); Calcium 8.7 mg/dL (8.4-10.2); Carbon Dioxide 27 mmol/L (22-30); Chloride 98 mmol/L (98-107); Estimated CRCL calculation 86 ml/min; Estimated Glomerular Filt Rate > 60; Glucose 143 mg/dL (65-110); Magnesium 1.5 mg/dL (1.6-2.3); Potassium 3.7 mmol/L (3.4-5.0); Sodium 134 mmol/L (137-145)
[2022-12-16 16:18] LABS: Troponin I 0.023 ng/mL (0.000-0.034)
[2022-12-16] MEDS: SODIUM CHLORIDE 0.9% IV 1,000 ML 500 ML IV CONT (16:23)
[2022-12-16 16:36] LABS: Influenza A QL RT-PCR Negative (Negative); Influenza B QL RT-PCR Negative (Negative); SARS-CoV-2 RNA PCR Positive
--- NOTE | 2022-12-16 17:36 | PM.IMHP ---
H&P: HPI History of Present Illness Date/Time: 12/16/22 17:36 Chief Complaint: Chest pain Narrative: This is a 67-year-old female patient who came to the emergency room with complaints of shortness of breath. The patient stated that she checked her pulse oximeter at home and her pulse ox was 86% on room air home. The patient stated she has been fully vaccinated for COVID she also has a history of hypertension incurred. The patient was short of breath wheezing and tachycardic. The patient stated that she flew in from [place] on Tuesday and started having worsening shortness of breaths on Tuesday. She denied any fever chills. She has had no history of atrial fibrillation. Her sodium is slightly low at 134. Her magnesium is slightly low at 1.4. Troponin is 0.03 and 0.097. BNP 2500. The patient was negative for influenza A/B and was positive for COVID. The patient was placed on oxygen at 2 L per nasal cannula. The patient was started on Decadron and remdesivir. Patient was found to be in AFib with RVR she was given Cardizem IV push, aspirin, and IV fluids. Cardiology has been consulted ER. Her EKG was AFib with RVR. Patient was admitted to inpatient status on the date of service of 12/16/2022. Review of Systems Review of Systems: See HPI All systems reviewed & are unremarkable except as noted in HPI and below Constitutional: Constitutional: Reports as per HPI and Reports no additional constitutional complaints Eyes: Eyes: Reports as per HPI and Reports no additional eye complaints ENT: Reports system reviewed and no additional complaints, except as documented and Reports Normal hearing present Cardiovascular: Cardiovascular: Reports no additional cardiovascular complaints Respiratory: Respiratory: Reports no additional respiratory complaints and Reports no additional respiratory complaints Gastrointestinal: Gastrointestinal: Reports as per HPI and Reports no additional gastrointestinal complaints Musculoskeletal: Musculoskeletal: Reports no additional musculoskeletal complaints Integumentary/Breasts: Skin/Breast: Reports system reviewed and no additional complaints, except as docu and Reports as per HPI Neurologic: Reports system reviewed and no additional complaints, except as documented, Reports as per HPI and Reports Normal hearing present Psychiatric: Psychiatric: Reports no additional psychiatric complaints and Reports as per HPI Endocrine: Endocrine: Reports no additional endocrine complaints Hematologic/Lymphatic: Hematologic/Lymphatic: Reports no additional hematologic/lymphatic complaints Allergic/Immunologic: Allergic/Immunologic: Reports no additional allergic/immunologic complaints [facility] Past Medical History Medical History (Updated 12/16/22 @ 20:15 by Maria Victoria Wright NP) Abnormal mammogram Brain aneurysm had coiling done Depression Diverticulosis Gastric outlet obstruction Gastroesophageal reflux disease without esophagitis GERD (gastroesophageal reflux disease) Hiatal hernia Hypertension Osteoporosis Positive colorectal cancer screening using Cologuard test Situational depression Surgical History Surgical History (Updated 12/16/22 @ 20:05 by Maria Victoria Wright NP) Cataract extraction status H/O colonoscopy (~09/2019) repeat 5 years H/O rectal polypectomy H/O: hysterectomy History of appendectomy History of bladder surgery S/P ORIF (open reduction internal fixation) fracture right humerus Family History Family History Father Family history of emphysema Family history of alcoholism Mother Family history of chronic obstructive pulmonary disease Sibling Brain aneurysm Other Family history of dementia Hypertension Social History Social History (Updated 12/16/22 @ 20:01 by Maria Victoria Wright NP) Social History: She lives at home. She is recently . 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
[2022-12-16 18:32] LABS: Alanine Aminotransferase 32 U/L (6-35); Estimated CRCL calculation 101 ml/min; Estimated Glomerular Filt Rate > 60
[2022-12-16 18:48] LABS: Thyroid Stimulating Hormone Reflex 0.926 uIU/mL (0.465-4.68)
[2022-12-16 18:56] LABS: NT Pro B Type Natriuretic Pept 2500 pg/mL (19.9-100); Troponin I 0.097 ng/mL (0.000-0.034)
--- NOTE | 2022-12-16 18:58 | ECG_ITS ---
Measurements Intervals [place] Rate: 119 P: [place]: 0 QRS: -31 QRSD: 88 T: 92 QT: 334 QTc: 470 Interpretive Statements ATRIAL FIBRILLATION WITH RAPID VENTRICULAR RESPONSE LEFT AXIS DEVIATION [QRS AXIS < -30] POSSIBLE ANTERIOR MYOCARDIAL INFARCTION , OF INDETERMINATE AGE [30 ms Q WAVE IN V3/V4, OR R < 0.2 mV IN V4] COMPARED TO ECG 12/16/2022 14:43:08 VENTRICULAR RESPONSE TO AFIB IS COMING UNDER CONTROL Electronically Signed On 12-17-2022 15:11:47 FIELD RING ASSEMBLER by Jd Saldaña M.D.
[2022-12-16 19:45] LABS: Appearance Urine Clear (Clear); Bilirubin Urine Negative (Negative); Blood Urine 2+ (Negative); Color Urine Yellow (Yellow); Glucose Urine UA Negative (Negative); Ketones Urine Negative (Negative); Leukocyte Esterase Ur Trace LEU/UL (Negative); Nitrate Urine Negative (Negative); Protein Urine Trace mg/dL (Negative); Specific Grav Ur <= 1.005 (1.001-1.035); Urobilinogen Urine 0.2 mg/dL (<2.0); pH Urine 6.5 (5.0-9.0)
--- NOTE | 2022-12-16 19:45 | PC.NURSE ---
assumed care. pt resting per stretcher in no distress. pt states she became sob after getting up to use bedside commode. 02 per n/c at 3L in place 02 sat=97. pt denies any pain. cardizem drip infusing without difficulty. pt updated on plan of care. will continue to monitor.
[2022-12-16 19:50] LABS: Mucus Urine Rare /lpf; Squamous Epithelial Cell Urine Many /hpf (Few); WBC Urine 0-3 /hpf
[2022-12-16] MEDS: REMDESIVIR 200 MG/NS 250 ML 200 MG/250 ML BAG 250 MG IVPB (19:50)
[2022-12-16 19:55] LABS: Add Urine Microscopic? YES
[2022-12-16] MEDS: MAGNESIUM SULF 2 GM/WATER 50ML 2 GM/50 ML BAG IVPB (21:04)
[2022-12-16] MEDS: dilTIAZem 100 MG/100 ML 100 MG/100 ML BAG 15 MG (21:11)
[2022-12-16] MEDS: ENOXAPARIN 100 MG/ML SYRINGE 86 MG SUB-Q (22:19)
[2022-12-16] MEDS: guaiFENesin/DEXTROMETHORPHAN 10 ML UDC PO (22:20)
[2022-12-16] MEDS: PANTOPRAZOLE SODIUM IV 40 MG VIAL IV PUSH (22:22)
--- NOTE | 2022-12-16 22:59 | ADMGEN ---
This patient, Hector Alvarado, was admitted to IMU Room 200-01 at 2155. Patient/family oriented to hospital policies and general routines including ID bracelet, bed and alarms, visiting hours, pain management, procedures, bathroom and other care routines, personal items, smoking policy, room service/diet, and visiting hours. Information on how to activate the Rapid Response Team has been discussed. Patient/Family are encouraged to report perceived risks to care and to ask questions if they do not understand what they are told or what they should do.
[2022-12-17] VITALS (16 sets, daily range): BP systolic 93–119; BP diastolic 52–82; PULSE 58–117; RESP 16–20; TEMP 36.2–36.6; O2SAT 94–99
--- NOTE | 2022-12-17 | ECHO_ITS ---
Patient Info Name: Hector Alvarado Age: 67 years : 1955 Gender: Female Ht: 66 in Wt: 198 lbs BSA: 2.08 m2 HR: 105 bpm BP: 93 / 66 mmHg Heart Rhythm: Atrial Fibrillation Exam Date: 12/17/2022 2:21 PM Exam Location: [facility] Pulmonary Patient Status: Inpatient Admit Date: 12/16/2022 Staff Ordering Physician: Maria Victoria Wright NP Message And Delivery Service Pricer: Mike Hamilton RDCS, RT Attending Provider: Jd Cruz MD Referring Physician: Adriana JORGE; Exam Type: CA echo doppler color flow Study Info Indications I48.1 - Persistent atrial fibrillation Complete two-dimensional, color flow and Doppler transthoracic echocardiogram is performed. Strain analysis performed. Summary 1. Complete two-dimensional, color flow and Doppler transthoracic echocardiogram is performed. 2. Normal left ventricular size with global systolic function that appears to be mildly reduced. 3. Very small amount of mitral regurgitation. 4. Mildly enlarged RA and RV. 5. Small pericardial effusion which appears to be anterior to the right ventricle. 6. Atrial fibrillation. Left Ventricle Left ventricular chamber dimension is normal. Left ventricular systolic function is mildly reduced, estimated at 40-45%. The left ventricular diastolic function is normal. Right Ventricle Right ventricular chamber dimension is mildly enlarged. Left Atria Left atrial chamber dimension is normal. Right Atria Right atrial chamber dimension is mildly enlarged. Aortic Valve The aortic valve is trileaflet. There is mild aortic valve sclerosis. Pulmonic Valve The pulmonic valve is normal. There is trace pulmonic regurgitation. Mitral Valve The mitral valve has normal leaflets. There is mild mitral valve regurgitation. Tricuspid Valve The tricuspid valve leaflets are normal. Pericardium/Pleural The pericardium appears normal. There is small pericardial effusion. Aorta The aortic root size at the sinus of Valsalva is normal. Left Ventricular Outflow Tract Name Value Normal LVOT 2D LVOT Diameter 2.0 cm LVOT Doppler LVOT Peak Gradient 1 mmHg LVOT Mean Gradient 0 mmHg LVOT VTI 15 cm LVOT VTI/AV VTI Ratio 0.7 LVOT Stroke Volume 48 ml LVOT CO 1.8 l/min LVOT CI 0.9 l/min/m2 Mitral Valve Name Value Normal MV Doppler MV Decel [place] 711 cm/s2 MV PHT 50 ms MV Area (PHT) 4.4 cm2 4.0-5.0 MV Diastolic Function MV E Peak Velocity 124 cm/s MV A Peak Velocity
[2022-12-17 04:51] LABS: Basophils Percent Auto 0.2 % (0.2-1.2); Hematocrit 39.9 % (37.0-47.0); Hemoglobin 13.2 g/dL (12.0-15.0); Immature Granulocyte Absolute 0.02 K/mm3 (0.00-0.031); Immature Granulocyte Percent A 0.4 % (0-0.5); Lymphocytes Absolute Auto 0.98 K/mm3 (0.9-3.2); Lymphocytes Percent Auto 21.3 % (18.3-44.2); Mean Corpuscular HGB Conc 33.1 g/dl (32-36); Mean Corpuscular Hemoglobin 31.7 pg (26-34); Mean Corpuscular Volume 95.9 fl (80-100); Mean Platelet Volume 11.6 fl (7.4-10.4); Monocytes Absolute Auto 0.1 K/mm3 (0.1-0.6); Monocytes Percent Auto 2.4 % (2.6-8.5); Neutrophils Absolute Auto 3.5 K/mm3 (1.3-6.7); Neutrophils Percent Auto 75.7 % (45.5-73.1); Platelet Count Result 145 k/mm3 (150-375); Red Blood Count 4.16 M/mm3 (4.2-5.4); Red Cell Distribution Width 12.8 % (11.5-14.5); White Blood Count 4.6 K/mm3 (4.5-10.0)
[2022-12-17 05:04] LABS: Alanine Aminotransferase 31 U/L (6-35); Albumin Level 4.1 g/dL (3.5-5.1); Alkaline Phosphatase 35 U/L (38-126); Anion Gap 7 mmol/L (8-16); Aspartate Amino Transferase 36 U/L (14-36); Bilirubin,Total 0.5 mg/dL (0.2-1.3); Blood Urea Nitrogen 13 mg/dL (7-17); Calcium 8.3 mg/dL (8.4-10.2); Carbon Dioxide 25 mmol/L (22-30); Chloride 99 mmol/L (98-107); Estimated CRCL calculation 104 ml/min; Estimated Glomerular Filt Rate > 60; Glucose 146 mg/dL (65-110); Lactic Acid Reflex 2.8 mmol/L (0.7-2.0); Magnesium 2.2 mg/dL (1.6-2.3); Potassium 3.9 mmol/L (3.4-5.0); Sodium 131 mmol/L (137-145)
[2022-12-17 05:10] LABS: INR 1.2; Prothrombin Time 14.5 Seconds (11.1-14.7)
[2022-12-17 05:52] LABS: Thyroid Stimulating Hormone Reflex 0.632 uIU/mL (0.465-4.68)
[2022-12-17] MEDS: guaiFENesin/DEXTROMETHORPHAN 10 ML UDC PO ×2 (07:01→21:37)
[2022-12-17 07:44] LABS: Reflex Lactic Acid Yes or No Add Lactic
[2022-12-17 08:32] LABS: Lactic Acid 1.6 mmol/L (0.7-2.0)
[2022-12-17] MEDS: METOPROLOL TARTRATE 25 MG TABLET PO (08:40)
--- NOTE | 2022-12-17 10:31 | PM.CNCAR ---
Assessment and Plan Assessment and plan (1) Atrial fibrillation with rapid ventricular response: Code(s): I48.91 - Unspecified atrial fibrillation Status: Acute Plan This is a 67-year-old lady with hypertension that was diagnosed several years ago when her was ill prior to his . She has been stable in that regard on high dose of lisinopril with some hydrochlorothiazide. She enters the hospital with atrial fib with RVR resulting in some pulmonary edema that cortez Alfaro started about 4 days ago. She was progressively getting more dyspneic with this but did not specifically recognize the tachycardia with palpitations. She has been placed on IV diltiazem overnight her heart rate is better controlled now the diltiazem drip has been interrupted as I came in the room it is not running currently. She has been anticoagulated with Lovenox. At this point I am going to recommend reducing her lisinopril dosage so that I can add some beta-armando to her regimen for rate control. I will start metoprolol succinate for that. I will start her on systemic anticoagulation with apixaban. I will give her 1 more dose of IV furosemide today as she does have some pulmonary congestion that persists on physical exam. At this point I think the optimal plan would be rate control with anticoagulation for the short term and then attempting cardioversion once she has been anticoagulated for 4-6 weeks. We do know that she had normal LV systolic function in 2020 on a nuclear stress test. There is no known history of coronary disease or concomitant lung disease that should be playing a role with any of this. Obviously her coronavirus infection along with underlying hypertension is the substrate for this. Will follow her with you in the hospital and after discharge and hopefully if AFib persists she will be successfully cardioverted in the short term as an outpatient Jd Saldaña MD [facility] History of Present Illness History of Present Illness Consult date/time: 12/17/22 10:31 Reason For Visit: covid, atrial fib, pulmonary edema Narrative: This is a 67-year-old woman I am seeing in the request of the hospitalist for consultation for management of atrial fibrillation. She has no previous history of cardiac problems specifically and came into the hospital through the emergency room last evening because of significant air hunger/dyspnea was found to have evidence of pulmonary edema and AFib with RVR. The patient is known to me as an employee of [employer]. She has a background of some hypertension for which she has been treated with lisinopril and hydrochlorothiazide but no other cardiac risk factors. She has no pre-existing history of lung disease. She was out of state in [place] a number of days ago attending the /memorial service for her sister and on Tuesday of this past week began to feel ill with some shortness of breath. Prior to that she had some severe pain in the left side of her neck and a severe headache for about 24 hours she took a lot of nonsteroidal anti-inflammatory medication at that time. Those symptoms resolved but over the last several days she has been getting progressively more breathless when this became severe yesterday an ambulance was called she was brought to the emergency room. Her evaluation showed evidence of her AFib with RVR and some pulmonary edema. The pulmonary edema was seen on a CT scan of her chest I do not see that a standard chest x-ray was performed. She was placed on diltiazem for some rate control I believe was given a dose of furosemide and anticoagulated with Lovenox. In this setting I am seeing her in consultation. There is a nuclear stress test in the record from September of 2021 showing no evidence of myocardial ischemia and a normal LV ejection fraction. Echocardiogram I believe has been ordered but has yet to be performed. In the emergency room upon presentation she also tested
[2022-12-17] MEDS: METOPROLOL SUCCINATE EXT REL 50 MG TABCR PO (11:10)
[2022-12-17] MEDS: FUROSEMIDE 20 MG TABLET PO (11:10)
[2022-12-17] MEDS: APIXABAN 5 MG TABLET PO ×2 (11:10→21:39)
[2022-12-17] MEDS: PANTOPRAZOLE SODIUM IV 40 MG VIAL IV PUSH ×2 (11:11→21:38)
--- NOTE | 2022-12-17 11:30 | PM.IMPN ---
Progress Note: A&P Assessment and Plan (1) Atrial fibrillation with rapid ventricular response: Code(s): I48.91 - Unspecified atrial fibrillation Status: Acute Assessment and Plan: Appreciate cardiology consultation, diltiazem drip has been discontinued, beta-armando will be started today with metoprolol, anticoagulation with Eliquis IV diuresis with Lasix x1 Rate controlled off the diltiazem drip at this time, blood pressure stable but on the low side Echo ordered and pending Plan is for attempted cardioversion in 4-6 weeks after anticoagulation and recovery from her COVID per cardiology recommendations (2) COVID: Code(s): U07.1 - COVID-19 Status: Acute Assessment and Plan: Stable on 3 L at this time, continue dexamethasone and remdesivir Lactic acidosis is improved, resolved Check CRP and D-dimer Q 48 hours (3) Hyponatremia: Code(s): E87.1 - Hypo-osmolality and hyponatremia Status: Acute Assessment and Plan: Somewhat worsened today, will reassess after Lasix Plan Home O2 eval pending for tomorrow morning DVT prophylaxis with Eliquis GI prophylaxis with PPI Code status full code Subjective Date/time seen: 12/17/22 11:30 Interval history: No overnight events noted. No nausea, vomiting or diarrhea. No fevers or chills. She denies chest pain, palpitations. Still with some shortness of breath with exertion. She is worried about getting oxygen set up while her son in law is here to help. She would like to go home no later than Tuesday to arrange for pet care. Review of Systems Review of Systems: 12 point review of systems was assessed and was negative except as noted in the HPI Exam Narrative: General: No acute distress, alert and oriented per baseline HEENT: Atraumatic, normocephalic, mucous membranes moist CV: Regular rate and rhythm, S1, S2 Lungs: Crackles at bases, diminished throughout, no wheeze Abdomen: Soft, nontender, nondistended Extremities: Normal to inspection, no edema Skin: No rashes noted, no lesions or wounds seen Psych: Very anxious, euthymic Objective Data Vital Signs Vital Signs: Vital Signs - 24 hr 12/16/22 14:50 12/16/22 14:52 12/16/22 14:53 Temperature Pulse Rate 172 H 170 H 180 H Respiratory Rate Blood Pressure 111/99 H 111/99 H Pulse Oximetry Oxygen Delivery Oxygen Flow Rate 12/16/22 14:54 12/16/22 14:55 12/16/22 15:04 Temperature 98.8 F Pulse Rate 205 H Respiratory Rate 28 H Blood Pressure 111/99 H Pulse Oximetry 94 92 94 Oxygen Delivery Nasal Cannula Nasal Cannula Nasal Cannula Oxygen Flow Rate 2 2 3 12/16/22 14:42 12/16/22 14:45 12/16/22 14:47 Temperature Pulse Rate 208 H 202 H 199 H Respiratory Rate 36 H 22 H 23 H Blood Pressure 111/99 H Pulse Oximetry 92 92 93 Oxygen Delivery Oxygen Flow Rate 12/16/22 15:00 12/16/22 15:08 12/16/22 15:09 Temperature Pulse Rate 188 H 182 H Respiratory Rate 31 H Blood Pressure 117/85 Pulse Oximetry 90 93 Oxygen Delivery Nasal Cannula Oxygen Flow Rate 3 12/16/22 15:10 12/16/22 15:22 12/16/22 16:18 Temperature Pulse Rate 182 H 165 H 127 H Respiratory Rate 28 H 31 H 19 Blood Pressure 102/73 91/68 L Pulse Oximetry 92 92 94 Oxygen Delivery Oxygen Flow Rate 12/16/22 15:30 12/16/22 15:31 12/16/22 15:40 Temperature Pulse Rate 151 H 193 H 146 H Respiratory Rate 27 H 30 H 25 H Blood Pressure 105/82 Pulse Oximetry 91 92 Oxygen Delivery Oxygen Flow Rate 12/16/22 15:46 12/16/22 15:50 12/16/22 16:00 Temperature Pulse Rate 156 H 150 H 151 H Respiratory Rate 25 H 30 H 26 H Blood Pressure 111/86 Pulse Oximetry 93 94 Oxygen Delivery Oxygen Flow Rate 12/16/22 16:01 12/16/22 16:10 12/16/22 16:13 Temperature Pulse Rate 151 H 126 H 144 H Respiratory Rate 25 H 25 H 26 H Blood Pressure 95/79 L 99/66 L Pulse Oximetry 94 97 94 Oxygen D
[2022-12-17 12:59] LABS: CRP 3.9 mg/dL (<1.0)
[2022-12-17] MEDS: busPIRone HCL 5 MG TABLET BY MOUTH (17:07)
[2022-12-17] MEDS: LORazepam INJ (*CRX) 2 MG/ML VIAL 0.5 MG IV PUSH (21:37)
[2022-12-17] MEDS: REMDESIVIR 100 MG/NS 250 ML 100 MG/250 ML BAG 250 MG IVPB (21:39)
[2022-12-18] VITALS (11 sets, daily range): BP systolic 103–113; BP diastolic 60–82; PULSE 53–139; RESP 16–24; TEMP 36.1–36.4; O2SAT 93–96
[2022-12-18] MEDS: LORazepam INJ (*CRX) 2 MG/ML VIAL 0.5 MG IV PUSH (04:10)
[2022-12-18 04:50] LABS: Basophils Percent Auto 0.1 % (0.2-1.2); Hematocrit 40.3 % (37.0-47.0); Hemoglobin 13.2 g/dL (12.0-15.0); Immature Granulocyte Absolute 0.05 K/mm3 (0.00-0.031); Immature Granulocyte Percent A 0.3 % (0-0.5); Lymphocytes Absolute Auto 1.76 K/mm3 (0.9-3.2); Lymphocytes Percent Auto 12.3 % (18.3-44.2); Mean Corpuscular HGB Conc 32.8 g/dl (32-36); Mean Corpuscular Hemoglobin 31.7 pg (26-34); Mean Corpuscular Volume 96.9 fl (80-100); Mean Platelet Volume 11.7 fl (7.4-10.4); Monocytes Absolute Auto 0.7 K/mm3 (0.1-0.6); Monocytes Percent Auto 4.7 % (2.6-8.5); Neutrophils Absolute Auto 11.8 K/mm3 (1.3-6.7); Neutrophils Percent Auto 82.6 % (45.5-73.1); Platelet Count Result 145 k/mm3 (150-375); Red Blood Count 4.16 M/mm3 (4.2-5.4); Red Cell Distribution Width 12.9 % (11.5-14.5); White Blood Count 14.3 K/mm3 (4.5-10.0)
[2022-12-18] MEDS: METOPROLOL TARTRATE INJ 5 MG/5 ML VIAL IV PUSH (04:54)
[2022-12-18 04:59] LABS: INR 1.4; Prothrombin Time 16.9 Seconds (11.1-14.7)
[2022-12-18 05:05] LABS: Alanine Aminotransferase 28 U/L (6-35); Alkaline Phosphatase 35 U/L (38-126); Anion Gap 7 mmol/L (8-16); Aspartate Amino Transferase 32 U/L (14-36); Bilirubin,Total 0.4 mg/dL (0.2-1.3); Blood Urea Nitrogen 17 mg/dL (7-17); Calcium 8.6 mg/dL (8.4-10.2); Carbon Dioxide 27 mmol/L (22-30); Chloride 103 mmol/L (98-107); Estimated CRCL calculation 89 ml/min; Estimated Glomerular Filt Rate > 60; Glucose 131 mg/dL (65-110); Potassium 4.1 mmol/L (3.4-5.0); Sodium 137 mmol/L (137-145)
--- NOTE | 2022-12-18 08:13 | PM.IMPN ---
Progress Note: A&P Assessment and Plan (1) Atrial fibrillation with rapid ventricular response: Code(s): I48.91 - Unspecified atrial fibrillation Status: Acute Assessment and Plan: Appreciate cardiology consultation, diltiazem drip has been discontinued Metoprolol + Eliquis initiated Rate elevated overnight, metoprolol increased, blood pressure stable Echo ordered and report pending Plan is for attempted cardioversion in 4-6 weeks after anticoagulation and recovery from her COVID per cardiology recommendations (2) COVID: Code(s): U07.1 - COVID-19 Status: Acute Assessment and Plan: Weaned to 2L nc, continue dexamethasone and remdesivir Lactic acidosis is improved, resolved Check CRP and D-dimer Q 48 hours Thrombocytopenia mild and stable, monitor 12/18: D-dimer elevated at 1.1, check CTA + LE dopplers (3) Hyponatremia: Code(s): E87.1 - Hypo-osmolality and hyponatremia Status: Acute Assessment and Plan: resolved Plan Home O2 eval pending DVT prophylaxis with Eliquis GI prophylaxis with PPI Code status full code Subjective Date/time seen: 12/18/22 08:13 Interval history: No overnight events noted. No nausea, vomiting or diarrhea. No fevers or chills. She denies chest pain, palpitations. Still with some shortness of breath with exertion. She is worried about getting oxygen set up while her son in law is here to help. She would like to go home no later than Tuesday to arrange for pet care. Review of Systems Review of Systems: 12 point review of systems was assessed and was negative except as noted in the HPI Exam Narrative: General: No acute distress, alert and oriented per baseline HEENT: Atraumatic, normocephalic, mucous membranes moist CV: Regular rate and rhythm, S1, S2 Lungs: Crackles at bases, diminished throughout, no wheeze Abdomen: Soft, nontender, nondistended Extremities: Normal to inspection, no edema Skin: No rashes noted, no lesions or wounds seen Psych: Very anxious, euthymic Objective Data Vital Signs Vital Signs: Vital Signs - 24 hr 12/17/22 08:40 12/17/22 11:10 12/17/22 12:00 Temperature 97.9 F Pulse Rate 104 H 95 95 Respiratory Rate 20 Blood Pressure 97/77 L Pulse Oximetry 99 Oxygen Delivery Oxygen Flow Rate 12/17/22 08:30 12/17/22 08:30 12/17/22 10:00 Temperature Pulse Rate 106 H 104 H Respiratory Rate Blood Pressure Pulse Oximetry 96 Oxygen Delivery Nasal Cannula Oxygen Flow Rate 3 12/17/22 14:00 12/17/22 12:00 12/17/22 16:00 Temperature 97.3 F L Pulse Rate 99 114 H Respiratory Rate 16 Blood Pressure 119/82 Pulse Oximetry 98 97 Oxygen Delivery Nasal Cannula Oxygen Flow Rate 3 12/17/22 16:00 12/17/22 16:00 12/17/22 18:00 Temperature Pulse Rate 115 H 105 H Respiratory Rate Blood Pressure Pulse Oximetry 95 Oxygen Delivery Nasal Cannula Oxygen Flow Rate 2 12/17/22 20:00 12/17/22 23:12 12/17/22 20:00 Temperature 97.2 F L 97.6 F Pulse Rate 58 L 106 H Respiratory Rate 18 18 Blood Pressure 110/66 119/70 Pulse Oximetry 98 97 97 Oxygen Delivery Nasal Cannula Oxygen Flow Rate 2 12/17/22 20:00 12/17/22 22:00 12/18/22 00:00 Temperature Pulse Rate 96 117 H 105 H Respiratory Rate Blood Pressure Pulse Oximetry Oxygen Delivery Oxygen Flow Rate 12/18/22 00:00 12/18/22 04:54 12/18/22 02:00 Temperature Pulse Rate 139 H 109 H Respiratory Rate Blood Pressure Pulse Oximetry 95 Oxygen Delivery Nasal Cannula Oxygen Flow Rate 1.5 12/18/22 04:00 12/18/22 04:00 12/18/22 04:00 Temperature 97.6 F Pulse Rate 126 H 111 H Respiratory Rate 20 Blood Pressure 113/69 Pulse Oximetry 95 96 Oxygen Delivery Nasal Cannula Oxygen Flow Rate 1.5 12/18/22 06:00 Temperature Pulse Rate 112 H Respiratory Rate Blood Pressure Pulse Oximetry Oxygen Deliv
--- NOTE | 2022-12-18 08:24 | PM.PNCARD ---
Progress Note: A&P Assessment and Plan (1) Atrial fibrillation with rapid ventricular response: Code(s): I48.91 - Unspecified atrial fibrillation Status: Acute Plan Patient is much improved clinically with heart rate control and some diuresis. Hopefully her oxygen can be weaned down to room air today. She is only on 1 L per nasal cannula at this time. Unfortunately I was unable to read her echocardiogram from yesterday as the [employer] application on the computer is not working this morning. I have advanced her metoprolol dosage to 100 mg to provide better rate control. Gave her an extra IV dose of metoprolol early this morning as her heart rate was up in the 130 range although she was asymptomatic with this. If she is hemodynamically stable with acceptable heart rate control and weaned down to room air I believe discharge this afternoon is reasonable. I would send her home on the 10 mg lisinopril dosage and metoprolol XL 100 mg per day as well as apixaban. I will arrange for office follow-up and anticipate attempting cardioversion in approximately 1 month Jd Saldaña MD [facility] Subjective Date/time seen: Date of service: 12/18/22 08:24 Interval history: Follow-up visit in this 67-year-old patient with: Recent onset of atrial fibrillation with RVR presenting with CHF secondary to this. Patient is doing much better now that heart rate is controlled and has received some diuresis. She feels essentially well this morning oxygen is now down to 1 L per nasal cannula. On admission patient also tested positive for coronavirus likely triggering this event. Exam Const: General: comfortable and no acute distress Other: Pleasant comfortable white female offers no complaints resting comfortably in bed HENMT: Mouth: Yes moist mucous membranes Eyes: Sclera: sclerae normal Neck: Neck: supple and no JVD Resp: Effort & Inspection: normal respiratory effort Auscultation: clear to auscultation bilaterally Cardio: Rate: regular rate Rhythm: abnormal rhythm irregularly irregular GI: GI Palp: Yes Soft to palpation Auscultation: normal bowel sounds Skin: General skin exam: normal color Neuro: Other: Alert and oriented x3 Extrem: Other: Good perfusion, no edema Objective Data Vital Signs Vital Signs: Vital Signs - 24 hr 12/17/22 08:40 12/17/22 11:10 12/17/22 12:00 Temperature 36.6 C Pulse Rate 104 H 95 95 Respiratory Rate 20 Blood Pressure 97/77 L Pulse Oximetry 99 Oxygen Delivery Oxygen Flow Rate 12/17/22 08:30 12/17/22 08:30 12/17/22 10:00 Temperature Pulse Rate 106 H 104 H Respiratory Rate Blood Pressure Pulse Oximetry 96 Oxygen Delivery Nasal Cannula Oxygen Flow Rate 3 12/17/22 14:00 12/17/22 12:00 12/17/22 16:00 Temperature 36.3 C L Pulse Rate 99 114 H Respiratory Rate 16 Blood Pressure 119/82 Pulse Oximetry 98 97 Oxygen Delivery Nasal Cannula Oxygen Flow Rate 3 12/17/22 16:00 12/17/22 16:00 12/17/22 18:00 Temperature Pulse Rate 115 H 105 H Respiratory Rate Blood Pressure Pulse Oximetry 95 Oxygen Delivery Nasal Cannula Oxygen Flow Rate 2 12/17/22 20:00 12/17/22 23:12 12/17/22 20:00 Temperature 36.2 C L 36.4 C Pulse Rate 58 L 106 H Respiratory Rate 18 18 Blood Pressure 110/66 119/70 Pulse Oximetry 98 97 97 Oxygen Delivery Nasal Cannula Oxygen Flow Rate 2 12/17/22 20:00 12/17/22 22:00 12/18/22 00:00 Temperature Pulse Rate 96 117 H 105 H Respiratory Rate Blood Pressure Pulse Oximetry Oxygen Delivery Oxygen Flow Rate 12/18/22 00:00 12/18/22 04:54 12/18/22 02:00 Temperature Pulse Rate 139 H 109 H Respiratory Rate Blood Pressure Pulse Oximetry 95 Oxygen Delivery Nasal Cannula Oxygen Flow Rate 1.5 12/18/22 04:00 12/18/22 04:00 12/18/22 04:00 Temperature 36.4 C Pulse Rate 126 H 111 H Respiratory Rate 20 Blood Pressure 113/69 P
[2022-12-18] MEDS: PANTOPRAZOLE SODIUM IV 40 MG VIAL IV PUSH (08:44)
[2022-12-18] MEDS: lisinopriL 10 MG TABLET PO (08:45)
[2022-12-18] MEDS: APIXABAN 5 MG TABLET PO (08:45)
[2022-12-18] MEDS: guaiFENesin/DEXTROMETHORPHAN 10 ML UDC PO (08:45)
[2022-12-18] MEDS: METOPROLOL SUCCINATE EXT REL 100 MG TABCR PO (10:35)
[2022-12-18] MEDS: busPIRone HCL 5 MG TABLET BY MOUTH (13:50)
--- NOTE | 2022-12-18 15:18 | PM.DS ---
DS: Admitting Diagnosis Discharge Date 12/18/22 Admitting Diagnosis sob DS: Discharge Diagnosis Discharge Diagnosis (1) Atrial fibrillation with rapid ventricular response: Code(s): I48.91 - Unspecified atrial fibrillation Status: Acute Assessment and Plan: Appreciate cardiology consultation, diltiazem drip has been discontinued Metoprolol + Eliquis initiated Rate elevated overnight, metoprolol increased, blood pressure stable Echo ordered and report pending Plan is for attempted cardioversion in 4-6 weeks after anticoagulation and recovery from her COVID per cardiology recommendations (2) COVID: Code(s): U07.1 - COVID-19 Status: Acute Assessment and Plan: Weaned to 2L nc, continue dexamethasone and remdesivir Lactic acidosis is improved, resolved Check CRP and D-dimer Q 48 hours Thrombocytopenia mild and stable, monitor 12/18: D-dimer elevated at 1.1, check CTA + LE dopplers Update: CTA + dopplers neg for PE, f/u with cardio for echo results and outpatient CV (3) Hyponatremia: Code(s): E87.1 - Hypo-osmolality and hyponatremia Status: Acute Assessment and Plan: resolved Plan Home O2 eval pending DVT prophylaxis with Eliquis GI prophylaxis with PPI Code status full code DS: Summary Hospital Course Hospital Course: 67-year-old female complaining was shortness of breath, found to be in AFib with RVR as well as COVID positive. Cardiology was consulted and started her on Eliquis, metoprolol and lisinopril. She was also started on remdesivir dexamethasone because she was requiring oxygen. She is able to be weaned to room air. Remdesivir was discontinued. She will complete a 10 day course of dexamethasone outpatient. Cardiology is recommending cardioversion outpatient 1 month. She was still somewhat tachycardic but asymptomatic and insistent upon going home to take care of her pets. She can follow-up with Cardiology outpatient as she may need a higher dose of metoprolol. Return precautions discussed extensively. Time Spent with Patient Time attestation: Total time spent providing and/or coordinating discharge services: Exam Narrative: General: No acute distress, alert and oriented per baseline HEENT: Atraumatic, normocephalic, mucous membranes moist CV: Regular rate and rhythm, S1, S2 Lungs: Crackles at bases, diminished throughout, no wheeze Abdomen: Soft, nontender, nondistended Extremities: Normal to inspection, no edema Skin: No rashes noted, no lesions or wounds seen Psych: Very anxious, euthymic DS: Data Data Completed and Pending Labs on day of discharge: Labs from last 24 hours 12/18/22 12/18/22 12/18/22 03:38 03:38 03:38 WBC 14.3 H RBC 4.16 L Hgb 13.2 Hct 40.3 MCV 96.9 MCH 31.7 MCHC 32.8 RDW 12.9 Plt Count 145 L MPV 11.7 H Immature Gran % (Auto) 0.3 Neut % (Auto) 82.6 H Lymph % (Auto) 12.3 L [place] % (Auto) 4.7 Eos % (Auto) 0.0 Baso % (Auto) 0.1 L Lymph # (Auto) 1.76 [place] # (Auto) 0.7 H Eos # (Auto) 0.0 Baso # (Auto) 0.0 Abs Immat Gran (auto) 0.05 H Absolute Neuts (auto) 11.8 H Absolute Nucleated RBC 0.0 Nucleated RBC % 0.0 PT 16.9 H INR 1.4 Sodium 137 Potassium 4.1 Chloride 103 Carbon Dioxide 27 Anion Gap 7 L BUN 17 Creatinine 0.60 L Estim Creat Clear Calc 89 Estimated GFR > 60 Glucose 131 H Calcium 8.6 Total Bilirubin 0.4 AST 32 ALT 28 Alkaline Phosphatase 35 L Total Protein 7.0 Albumin 4.0 Discharge Plan Discharge Attending physician on discharge: Michela Hawkins Consulting providers: Ike Dial Discharging Clinician: Michela Hawkins Patient Disposition: Home, Self-Care Activity: as tolerated Diet: as tolerated Patient Instructions: Antibiotic Form Stand Alone Forms: General Discharge Information Follow-up/Referrals:
== END 2022-12-18 16:45 | disposition home or self-care (01) | DRG 178 ==
LOC: ANHED 19:26 → ANHIMU 19:31
PROVIDERS: Nurse Practitioner; Admitting Provider Chiropractor; Emergency Provider Emergency Medicine; PCP Family Medicine; Visit Provider Student in an Organized Health Care Education/Training Program
DX: U07.1 COVID-19 (principal); E87.1 Hypo-osmolality and hyponatremia; F32.A Depression, unspecified; I48.91 Unspecified atrial fibrillation; I10 Essential (primary) hypertension; K21.9 Gastro-esophageal reflux disease without esophagitis; K57.90 Diverticulosis of intestine, part unspecified, without perforation or abscess without bleeding; M81.0 Age-related osteoporosis without current pathological fracture; R77.8 Other specified abnormalities of plasma proteins; Z90.710 Acquired absence of both cervix and uterus; Z90.49 Acquired absence of other specified parts of digestive tract
CPT/HCPCS: 36415; 71275; 80053; 81001; 82565; 83605; 83735; 83880; 84443; 84460; 84484; 85025; 85380; 85610; 85730; 86140; 87636; 93005; 93306; 93970; 94640; 96361; 96374; 96375; 99285; A9270; C9113; J0248; J1100; J1650; J2060; J3475; J7030; Q9967

== ENCOUNTER 2023-01-17 00:56 | Day surgery (SDC) | payer MEDICARE, SELFPAY ==
[2023-01-17] VITALS (13 sets, daily range): BP systolic 84–104; BP diastolic 38–84; PULSE 74–134; RESP 16; TEMP 36.3; O2SAT 96–100; BMI 30.3
--- NOTE | 2023-01-17 08:30 | ECG_ITS ---
Measurements Intervals [place] Rate: 69 P: 73 CT: 234 QRS: -36 QRSD: 97 T: 52 QT: 411 QTc: 443 Interpretive Statements SINUS RHYTHM WITH FIRST DEGREE AV BLOCK NONCONDUCTED ATRIAL PREMATURE COMPLEX LEFT AXIS DEVIATION LOW QRS VOLTAGE IN PRECORDIAL LEADS INFERIOR INFARCT, AGE INDETERMINATE BORDERLINE ST-T WAVE ABNORMALITY- ANT/HIGH LAT LEADS ABNORMAL ECG COMPARED TO ECG 01/17/2023 08:27:05 SINUS RHYTHM NOW PRESENT FIRST DEGREE AV BLOCK NOW PRESENT Electronically Signed On 01-17-2023 10:08:31 CDT by Vu Troncoso D.O.
[2023-01-17 08:53] LABS: Anion Gap 12 mmol/L (8-16); Blood Urea Nitrogen 18 mg/dL (7-17); Calcium 9.5 mg/dL (8.4-10.2); Carbon Dioxide 29 mmol/L (22-30); Chloride 96 mmol/L (98-107); Estimated CRCL calculation 66 ml/min; Estimated Glomerular Filt Rate > 60; Glucose 99 mg/dL (65-110); Magnesium 1.8 mg/dL (1.6-2.3); Potassium 3.7 mmol/L (3.4-5.0); Sodium 137 mmol/L (137-145)
--- NOTE | 2023-01-17 09:32 | WPDMODSED ---
Moderate Sedation Note-Pt Data Patient Data Diagnosis: Recent onset of persistent atrial fibrillation Present Complaint: Fatigue/shortness of breath Procedure to be performed/Plan: DC cardioversion Allergies Allergy/AdvReac Type Severity Reaction Status Date / Time latex Allergy Unknown Rash Verified 01/14/23 11:48 Home Medications Medication Instructions Recorded Confirmed Type buspirone 5 mg tablet See Rx Instructions .Route 08/03/22 01/17/23 Rx .COMPLEX #270 tabs hydrochlorothiazide 25 mg tablet See Rx Instructions PO DAILY #180 11/01/22 01/17/23 Rx tabs apixaban 5 mg tablet (Eliquis) 5 mg PO Q12HR 1 month #60 tabs 12/18/22 01/17/23 Rx metoprolol succinate 100 mg 100 mg PO QAM 1 month #30 tabs 12/18/22 01/17/23 Rx tablet,extended release 24 hr (Toprol XL) fluticasone propionate 110 1 puff inhalation Q12H 30 days #12 12/31/22 01/14/23 Rx mcg/actuation HFA aerosol inhaler grams lisinopril 10 mg tablet 10 mg PO DAILY 90 days #90 tabs 12/31/22 01/17/23 Rx Current Medications: Active Medications Sodium Chloride (Normal Saline Iv) 1,000 mls @ 30 mls/hr IV CONT .Q24H KELLIE Sedation/Anesthesia: No previous sedation/anesthesia problems (including family history). [facility] Past Medical History Medical History (Updated 12/18/22 @ 16:20 by Michela Hawkins, ) Abnormal mammogram Anxiety Brain aneurysm had coiling done Depression Diverticulosis Gastric outlet obstruction Gastroesophageal reflux disease without esophagitis GERD (gastroesophageal reflux disease) Hiatal hernia Hypertension Osteoporosis Positive colorectal cancer screening using Cologuard test Situational depression Surgical History Surgical History (Updated 12/16/22 @ 20:05 by Maria Victoria Wright NP) Cataract extraction status H/O colonoscopy (~09/2019) repeat 5 years H/O rectal polypectomy H/O: hysterectomy History of appendectomy History of bladder surgery S/P ORIF (open reduction internal fixation) fracture right humerus Family History Family History Father Family history of emphysema Family history of alcoholism Mother Family history of chronic obstructive pulmonary disease Sibling Brain aneurysm Other Family history of dementia Hypertension Social History Social History (Updated 12/16/22 @ 20:01 by Maria Victoria Wright NP) Social History: She lives at home. She is recently . 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 She does have living will and POA- her daughter, Hallie Stroud. She lost her 2 step children. They not too long ago. code status full code Smoking status: Former smoker Tobacco type: cigarettes Second hand tobacco smoke exposure: Yes Smoking end date: 10/24/96 Alcohol intake: current Alcohol use details: very rare, several times per year Substance use: never Substance use type: does not use Lack of Transportation: No Lack of Food: Never True Current Housing: I Have Housing Concerned About Future Housing: No Difficulty Paying Gas/Electric Bills: No Difficulty Paying for Meds: No Currently Unemployed: No Education: Bachelor's Degree Difficulty w/ Childcare or Family Care: No Living arrangements: alone Gender identity (if verbalized by the patient): Female Spiritual care concerns: No Agree to blood products: Yes Mod Sed Physical Exam Physical Exam Pre Procedural Exam: Normal: Appearance, Neck, Throat, Airway, Lungs, Heart Size, Neuro Exam and Extremities and Variation: Heart Rate and Heart Rhythm (Irregularly irregular/tachycardic) Hours since solid foods: 12 Hours since liquid intake: 12 Mallampati Classification: class II Internal Medicine - PN: Obj Da Vital Signs Vital Signs: Vital Signs - 24 hr 01/17/23 08:34 Temperature 36.3 C L Pulse Rate 130 H Respiratory Rate 16 Blood Pressure 96/76 L Pulse Oximetry 96 Oxygen Delivery Ro
--- NOTE | 2023-01-17 10:04 | WPDCARDPROC ---
Cardiac Cath Procedure Note Date of procedure:: 01/17/23 Performing physician:: Jd Saldaña MD Indication:: Persistent atrial fibrillation Brief clinical history:: This is a 67-year-old patient who recently contracted coronavirus. Following that she developed atrial fibrillation. There has been no prior cardiac history. She has been anticoagulated for 4 weeks and rate controlled with metoprolol. An attempt at restoring sinus rhythm electrically has been recommended for today. Procedure Procedure performed:: DC cardioversion Sedation/Medication given:: Propofol IV total dosage of 80 mg given in 2 aliquots Estimated blood loss:: 0 Procedure note:: Patient was brought to the cardiac catheterization lab in the postabsorptive state defibrillator patches were placed in the AP position. She then was sedated with propofol a. IV access was established in the left antecubital. Two aliquots of propofol were given a total dose of 80 mg. This provided excellent procedural sedation. She was DC cardioverted in a synchronized fashion with 200 joules x1 shock which restored normal sinus rhythm with first-degree AV block. Findings:: As above Conclusion:: Successful uncomplicated DC cardioversion terminating atrial fib restoring sinus rhythm with first-degree AV block using 200 joules x1 shock. Jd Saldaña MD [facility]
--- NOTE | 2023-01-17 10:15 | ECG_ITS ---
Measurements Intervals [place] Rate: 137 P: [place]: 0 QRS: -36 QRSD: 86 T: 0 QT: 142 QTc: 215 Interpretive Statements ATRIAL FIBRILLATION WITH RAPID VENTRICULAR RESPONSE VENTRICULAR PREMATURE COMPLEX LOW QRS VOLTAGE IN PRECORDIAL LEADS BORDERLINE R WAVE PROGRESSION, ANTERIOR LEADS INFERIOR INFARCT, AGE INDETERMINATE BORDERLINE ST-T WAVE ABNORMALITY- ANTEROLAT/HIGH LAT LEADS BASELINE ARTIFACT- I, II, AVR ABNORMAL ECG COMPARED TO ECG 12/16/2022 19:27:52 NO SIGNIFICANT CHANGES Electronically Signed On 01-17-2023 8:38:16 CDT by Vu Troncoso D.O.
== END 2023-01-17 11:13 | disposition home or self-care (01) ==
PROVIDERS: PCP Family Medicine; Visit Provider Specialist
PROC: 5A2204Z Restoration of Cardiac Rhythm, Single (ICD-10-PCS; principal; 2023-01-17 10:00)
DX: I48.19 Other persistent atrial fibrillation (principal); I10 Essential (primary) hypertension; F41.9 Anxiety disorder, unspecified; F32.A Depression, unspecified; Z79.51 Long term (current) use of inhaled steroids; Z79.01 Long term (current) use of anticoagulants; Z87.891 Personal history of nicotine dependence
CPT/HCPCS: 36415; 80048; 83735; 92960; J2704; J7030

== ENCOUNTER 2023-01-24 10:19 | Inpatient (IN) | payer MEDICARE, SELFPAY ==
[2023-01-24] VITALS (24 sets, daily range): BP systolic 98–130; BP diastolic 69–107; PULSE 91–153; RESP 12–22; TEMP 36.6–36.9; O2SAT 97–100; BMI 29.5
--- NOTE | ~2023-01-24 | XR_ITS ---
EXAMINATION: XR chest 1V portable DATE: 01/24/2023 11:04 INDICATION: Fatigue. Atrial fibrillation. TECHNIQUE: frontal view of the chest was obtained. COMPARISON: Chest radiograph dated and CT dated 12/18/2022 FINDINGS: Mild emphysema better appreciated on prior CT with persistent biapical pleural-parenchymal scarring, right greater than left. Subtle increased interstitial pattern at the right lower lung zone suggestin g minimal pulmonary edema. No other airspace opacities, pleural effusion or pneumothorax. Mild cardio megaly. IMPRESSION: 1. Mild emphysema with minimal pulmonary edema at the right lower lung zone. 2. Cardiomegaly. Reviewed, dictated and finalized at location A.
--- NOTE | 2023-01-24 10:20 | ECG_ITS ---
Measurements Intervals [place] Rate: 139 P: [place]: 0 QRS: -32 QRSD: 90 T: 94 QT: 293 QTc: 446 Interpretive Statements ATRIAL FIBRILLATION WITH RAPID VENTRICULAR RESPONSE MARKED LEFT AXIS DEVIATION [QRS AXIS < -30] NONSPECIFIC T-WAVE ABNORMALITY ABNORMAL EKG COMPARED TO ECG 01/17/2023 10:02:15 ATRIAL FIBRILLATION NOW PRESENT T-WAVE ABNORMALITY NOW PRESENT Electronically Signed On 01-24-2023 12:28:45 CDT by Ike Dial M.D.
[2023-01-24] MEDS: SODIUM CHLORIDE 0.9% IV 1,000 ML 999 ML IV CONT (10:48)
[2023-01-24] MEDS: METOPROLOL TARTRATE INJ 5 MG/5 ML VIAL IV PUSH ×2 (10:48→11:31)
[2023-01-24 11:00] LABS: Basophils Absolute Auto 0.1 K/mm3 (0.0-0.1); Basophils Percent Auto 0.9 % (0.2-1.2); Eosinophils Absolute Auto 0.1 K/mm3 (0-0.3); Eosinophils Percent Auto 0.9 % (0-4.4); Hematocrit 41.8 % (37.0-47.0); Hemoglobin 14.4 g/dL (12.0-15.0); Immature Granulocyte Absolute 0.02 K/mm3 (0.00-0.031); Immature Granulocyte Percent A 0.2 % (0-0.5); Lymphocytes Percent Auto 43.9 % (18.3-44.2); Mean Corpuscular HGB Conc 34.4 g/dl (32-36); Mean Corpuscular Hemoglobin 31.3 pg (26-34); Mean Corpuscular Volume 90.9 fl (80-100); Mean Platelet Volume 10.9 fl (7.4-10.4); Monocytes Absolute Auto 0.8 K/mm3 (0.1-0.6); Monocytes Percent Auto 8.5 % (2.6-8.5); Neutrophils Absolute Auto 4.5 K/mm3 (1.3-6.7); Neutrophils Percent Auto 45.6 % (45.5-73.1); Platelet Count Result 221 k/mm3 (150-375); Red Cell Distribution Width 12.5 % (11.5-14.5); White Blood Count 9.8 K/mm3 (4.5-10.0)
[2023-01-24 11:05] LABS: Alanine Aminotransferase 19 U/L (6-35); Albumin Level 4.5 g/dL (3.5-5.1); Alkaline Phosphatase 45 U/L (38-126); Anion Gap 7 mmol/L (8-16); Aspartate Amino Transferase 34 U/L (14-36); Bilirubin,Total 0.7 mg/dL (0.2-1.3); Blood Urea Nitrogen 13 mg/dL (7-17); Calcium 9.8 mg/dL (8.4-10.2); Carbon Dioxide 30 mmol/L (22-30); Chloride 99 mmol/L (98-107); Estimated CRCL calculation 85 ml/min; Estimated Glomerular Filt Rate > 60; Glucose 107 mg/dL (65-110); Magnesium 1.8 mg/dL (1.6-2.3); Potassium 3.5 mmol/L (3.4-5.0); Sodium 136 mmol/L (137-145)
[2023-01-24 11:14] LABS: NT Pro B Type Natriuretic Pept 1930 pg/mL (19.9-100)
[2023-01-24 11:32] LABS: INR 1.4; Prothrombin Time 16.5 Seconds (11.1-14.7)
[2023-01-24 11:33] LABS: Partial Thromboplastin Time 34.2 SECONDS (22.3-36.8)
--- NOTE | 2023-01-24 12:00 | ED.ARRPALP ---
HPI - Arrhythmia/Palpitations General Chief Complaint: Arrhythmia/Palpitations Stated Complaint: Afib RVR Time Seen by Provider: 01/24/23 10:26 Source: patient and old records reviewed Mode of arrival: ambulatory Limitations: no limitations History of Present Illness HPI narrative: This is a 67 year old female with recent diagnosis atrial fibrillation who presents for evaluation of afib with RVR. She was first diagnosed with atrial fibrillation with RVR in November when she was diagnosed with covid. She was started on metoprolol 100 mg XL and Eliquis until she could have cardioversion performed. 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 She was found to be in afib with RVR again today so she was sent to ER. She reports her toprol dose was decreased to 50 mg last week. She denies chest pain, sob. She has had fatigue since her covid diagnosis. She denies nausea, vomiting or diarrhea. she states she does not feel like her heart rate is fast Related Data Home Medications Medication Instructions Recorded Confirmed alprazolam 0.5 mg tablet 0.5 mg PO TID PRN Anxiety 01/24/23 01/24/23 buspirone 5 mg tablet 5 mg PO DAILY 01/24/23 01/24/23 hydrochlorothiazide 25 mg tablet 25 mg PO DAILY 01/24/23 01/24/23 Allergies Allergy/AdvReac Type Severity Reaction Status Date / Time latex Allergy Unknown Rash Verified 01/14/23 11:48 Review of Systems Constitutional: Constitutional: Denies weakness Cardiovascular: Cardiovascular: Denies syncope, Denies rapid heart rate, Denies irregular heart rhythm, Denies leg edema and Denies dyspnea Respiratory: Respiratory: Denies chest congestion, Denies hemoptysis, Denies excessive phlegm production and Denies dyspnea Gastrointestinal: Gastrointestinal: Denies abdominal pain, Denies hematochezia, Denies diarrhea and Denies vomiting Genitourinary: Genitourinary: Denies hematuria and Denies dysuria Musculoskeletal: Musculoskeletal: Denies joint swelling, Denies loss of height and Denies muscle weakness Neurologic: Denies syncope, Denies focal weakness and Denies weakness PMFSH Past Medical History Medical History Abnormal mammogram Anxiety Brain aneurysm had coiling done Congestive heart failure Echo 12/17/2022 1. Complete two-dimensional, color flow and Doppler transthoracic echocardiogram is performed. 2. Normal left ventricular size with global systolic function that appears to be mildly reduced. 3. Very small amount of mitral regurgitation. 4. Mildly enlarged RA and RV. 5. Small pericardial effusion which appears to be anterior to the right ventricle. 6. Atrial fibrillation. Left Ventricle Left ventricular chamber dimension is normal. Left ventricular systolic function is mildly reduced, estimated at 40-45%. The left ventricular diastolic function is normal. Depression Diverticulosis Gastric outlet obstruction Gastroesophageal reflux disease without esophagitis GERD (gastroesophageal reflux disease) Hiatal hernia History of cardioversion Hypertension Osteoporosis Positive colorectal cancer screening using Cologuard test Situational depression Surgical History Surgical History Cataract extraction status H/O colonoscopy (~09/2019) repeat 5 years H/O rectal polypectomy H/O: hysterectomy History of appendectomy History of bladder surgery S/P ORIF (open reduction internal fixation) fracture right humerus Family History Family History Father Family history of emphysema Family history of alcoholism Mother Family history of chronic obstructive pulmonary disease Sibling Brain aneurysm Other Family history of dementia Hypertension Social History Social History Social History: Sh
--- NOTE | 2023-01-24 12:31 | PM.IMHP ---
H&P: HPI History of Present Illness Date/Time: 01/24/23 12:31 Chief Complaint: AFib with RVR Narrative: This is a 67-year-old female patient who has a history of atrial fibrillation. The patient had a DC cardioversion on 01/17/[address] Monreal. According to the note it was a successful uncomplicated DC cardioversion terminating atrial fibrillation restoring sinus rhythm with first-degree AV block using 200 joules x1 shock. The patient was 1st diagnosed with AFib with RVR this past November when she was diagnosed with COVID. The patient was initially on 100 mg of metoprolol and then changed to a 50 mg because her blood pressure was low. The patient has been on Eliquis. Today the patient went to the cardiology office to be cleared for work. The patient was found to be in AFib again with RVR today. She was then sent to the emergency room. The patient stated that her heart rate was 180 in the office. She had some fatigue since COVID diagnosis but denies any nausea vomiting diarrhea or any fever today. She did feel like her heart rate was fast today. Her highest recorded heart rate here was 153. Cardiology was consulted and suggested that the patient be placed on an amiodarone drip. The patient is very anxious because she has left her animals at home and requested Ativan. Her BNP was found to be 1930. Chest x-ray was read as mild emphysema and minimal pulmonary edema at the right lower lung zone and cardiomegaly. The patient did have an echo in 12/17/2022 which was read as the following1. Complete two-dimensional, color flow and Doppler transthoracic echocardiogram is performed. ? 2. Normal left ventricular size with global systolic function that appears to be mildly reduced. ? 3. Very small amount of mitral regurgitation. ? 4. Mildly enlarged RA and RV. ? 5. Small pericardial effusion which appears to be anterior to the right ventricle. ? 6. Atrial fibrillation. Left Ventricle ? Left ventricular chamber dimension is normal. ? Left ventricular systolic function is mildly reduced, estimated at 40-45%. ? The left ventricular diastolic function is normal. She was given a L of fluids, Lopressor IV x2 Xanax at amiodarone drip in the emergency room. The patient is being admitted for observation status on the date of service of 01/24/2023. Review of Systems Review of Systems: All systems reviewed & are unremarkable except as noted in HPI and below Constitutional: Constitutional: Reports as per HPI and Reports no additional constitutional complaints Eyes: Eyes: Reports as per HPI and Reports no additional eye complaints ENT: Reports system reviewed and no additional complaints, except as documented and Reports Normal hearing present Cardiovascular: Cardiovascular: Reports no additional cardiovascular complaints Respiratory: Respiratory: Reports no additional respiratory complaints and Reports no additional respiratory complaints Gastrointestinal: Gastrointestinal: Reports as per HPI and Reports no additional gastrointestinal complaints Musculoskeletal: Musculoskeletal: Reports no additional musculoskeletal complaints Integumentary/Breasts: Skin/Breast: Reports system reviewed and no additional complaints, except as docu and Reports as per HPI Neurologic: Reports system reviewed and no additional complaints, except as documented, Reports as per HPI and Reports Normal hearing present Psychiatric: Psychiatric: Reports no additional psychiatric complaints and Reports as per HPI Endocrine: Endocrine: Reports no additional endocrine complaints Hematologic/Lymphatic: Hematologic/Lymphatic: Reports no additional hematologic/lymphatic complaints Allergic/Immunologic: Allergic/Immunologic: Reports no additional allergic/immunologic complaints [facility] Past Medical History Medical History Abnormal mammogram Anxiety Brain aneurysm had coiling done Congestive heart
[2023-01-24] MEDS: AMIODARONE 150 MG/D5W 100 ML 150 MG/100 ML BAG 600 MG IV CONT (12:48)
[2023-01-24] MEDS: ALPRAZolam (*CRX) 0.5 MG TABLET PO (12:48)
[2023-01-24] MEDS: AMIODARONE 360 MG/D5W 200 ML 360 MG/200 ML BAG 33.33 MG IV CONT (13:02)
--- NOTE | 2023-01-24 13:54 | PC.NURSE ---
This patient, Hector Alvarado, was admitted to Intensive Care Unit-8. Patient/family oriented to hospital policies and general routines including ID bracelet, bed and alarms, visiting hours, pain management, procedures, bathroom and other care routines, personal items, smoking policy, room service/diet, and visiting hours. Information on how to activate the Rapid Response Team has been discussed. Patient/Family are encouraged to report perceived risks to care and to ask questions if they do not understand what they are told or what they should do.
--- NOTE | 2023-01-24 15:21 | PM.CNCAR ---
Assessment and Plan Assessment and plan (1) Atrial fibrillation with rapid ventricular response: Code(s): I48.91 - Unspecified atrial fibrillation Status: Acute Assessment and Plan: Recent diagnosis of atrial fibrillation s/p DCCV on 01/17/23 with lutheran of sinus rhythm. She is back in atrial fibrillation with RVR. Asymptomatic despite heart rate being in the 160's at times. Amiodarone bolus and drip Plan for repeat DCCV tomorrow if she does not convert with the amiodarone NPO after MN Continue eliquis Check apnea link History of Present Illness History of Present Illness Consult date/time: 01/24/23 15:21 Requesting physician: Myra Alarcon MD Consult reason: atrial fibrillation Reason For Visit: Afib with RVR Narrative: Hector Alvarado is a 67 year old female who was recently found to have atrial fibrillation. Her atrial fibrillation diagnosis was made in the setting of acute illness with COVID. She had no prior cardiac history. A rate control and anticoagulation strategy was pursued and after a month of being on anticoagulation, she underwent DCCV on 01/17/2023 with successful lutheran of sinus rhythm. She presented to our office today for a follow up EKG and was found to be back in atrial fibrillation with RVR, rate 171bpm. She was taken to the emergency department and admitted for further management. She denies any palpitations, shortness of breath, chest pain, or swelling. Has been feeling well since her cardioversion last week. Review of Systems Review of Systems: All systems reviewed & are unremarkable except as noted in HPI and below PMFSH Past Medical History Medical History Abnormal mammogram Anxiety Brain aneurysm had coiling done Congestive heart failure Echo 12/17/2022 1. Complete two-dimensional, color flow and Doppler transthoracic echocardiogram is performed. 2. Normal left ventricular size with global systolic function that appears to be mildly reduced. 3. Very small amount of mitral regurgitation. 4. Mildly enlarged RA and RV. 5. Small pericardial effusion which appears to be anterior to the right ventricle. 6. Atrial fibrillation. Left Ventricle Left ventricular chamber dimension is normal. Left ventricular systolic function is mildly reduced, estimated at 40-45%. The left ventricular diastolic function is normal. Depression Diverticulosis Gastric outlet obstruction Gastroesophageal reflux disease without esophagitis GERD (gastroesophageal reflux disease) Hiatal hernia History of cardioversion Hypertension Osteoporosis Positive colorectal cancer screening using Cologuard test Situational depression Surgical History Surgical History Cataract extraction status H/O colonoscopy (~09/2019) repeat 5 years H/O rectal polypectomy H/O: hysterectomy History of appendectomy History of bladder surgery S/P ORIF (open reduction internal fixation) fracture right humerus Family History Family History Father Family history of emphysema Family history of alcoholism Mother Family history of chronic obstructive pulmonary disease Sibling Brain aneurysm Other Family history of dementia Hypertension Social History Social History Social History: She lives at home. She is recently . 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 She does have living will and POA- her daughter, Hallie Stroud. She lost her 2 step children. They not too long ago. code status full code Smoking status: Former smoker Tobacco type: cigarettes Second hand tobacco smoke exposure: Yes Smoking end date: 10/24/96 Alcohol intake: current Alcohol use details: very rare, several times per year Substance u
[2023-01-24] MEDS: AMIODARONE 360 MG/D5W 200 ML 360 MG/200 ML BAG 16.67 MG IV CONT (18:41)
[2023-01-24] MEDS: FAMOTIDINE 20 MG/2 ML VIAL IV PUSH (19:42)
[2023-01-24] MEDS: APIXABAN 5 MG TABLET PO (19:42)
[2023-01-24] MEDS: LORazepam INJ (*CRX) 2 MG/ML VIAL 0.5 MG IV PUSH (21:18)
[2023-01-25] VITALS (54 sets, daily range): BP systolic 100–144; BP diastolic 71–129; PULSE 79–145; RESP 12–24; TEMP 36.8; O2SAT 94–98
[2023-01-25] MEDS: AMIODARONE 360 MG/D5W 200 ML 360 MG/200 ML BAG 16.67 MG IV CONT (07:37)
[2023-01-25 07:55] LABS: Basophils Absolute Auto 0.1 K/mm3 (0.0-0.1); Basophils Percent Auto 1.1 % (0.2-1.2); Eosinophils Absolute Auto 0.1 K/mm3 (0-0.3); Eosinophils Percent Auto 1.7 % (0-4.4); Hematocrit 39.3 % (37.0-47.0); Hemoglobin 13.6 g/dL (12.0-15.0); Immature Granulocyte Absolute 0.02 K/mm3 (0.00-0.031); Immature Granulocyte Percent A 0.3 % (0-0.5); Lymphocytes Absolute Auto 2.64 K/mm3 (0.9-3.2); Lymphocytes Percent Auto 36.3 % (18.3-44.2); Mean Corpuscular HGB Conc 34.6 g/dl (32-36); Mean Corpuscular Hemoglobin 31.9 pg (26-34); Mean Corpuscular Volume 92.3 fl (80-100); Mean Platelet Volume 10.8 fl (7.4-10.4); Monocytes Absolute Auto 0.7 K/mm3 (0.1-0.6); Monocytes Percent Auto 9.1 % (2.6-8.5); Neutrophils Absolute Auto 3.8 K/mm3 (1.3-6.7); Neutrophils Percent Auto 51.5 % (45.5-73.1); Platelet Count Result 180 k/mm3 (150-375); Red Blood Count 4.26 M/mm3 (4.2-5.4); Red Cell Distribution Width 12.6 % (11.5-14.5); White Blood Count 7.3 K/mm3 (4.5-10.0)
[2023-01-25 08:07] LABS: Alanine Aminotransferase 18 U/L (6-35); Alkaline Phosphatase 41 U/L (38-126); Anion Gap 10 mmol/L (8-16); Aspartate Amino Transferase 31 U/L (14-36); Bilirubin,Total 0.4 mg/dL (0.2-1.3); Blood Urea Nitrogen 12 mg/dL (7-17); Calcium 8.7 mg/dL (8.4-10.2); Carbon Dioxide 26 mmol/L (22-30); Chloride 102 mmol/L (98-107); Estimated CRCL calculation 100 ml/min; Estimated Glomerular Filt Rate > 60; Glucose 108 mg/dL (65-110); Magnesium 1.7 mg/dL (1.6-2.3); Potassium 3.8 mmol/L (3.4-5.0); Sodium 138 mmol/L (137-145)
[2023-01-25] MEDS: APIXABAN 5 MG TABLET PO (08:14)
[2023-01-25] MEDS: busPIRone HCL 5 MG TABLET PO (08:14)
[2023-01-25] MEDS: FAMOTIDINE 20 MG/2 ML VIAL IV PUSH (08:14)
[2023-01-25] MEDS: LORazepam INJ (*CRX) 2 MG/ML VIAL 0.5 MG IV PUSH (08:26)
--- NOTE | 2023-01-25 10:10 | ECG_ITS ---
Measurements Intervals [place] Rate: 78 P: 77 TX: 234 QRS: -34 QRSD: 96 T: 61 QT: 412 QTc: 470 Interpretive Statements SINUS RHYTHM WITH FIRST DEGREE AV BLOCK WITH OCCASIONAL SUPRAVENTRICULAR PREMATURE COMPLEXES MARKED LEFT AXIS DEVIATION [QRS AXIS < -30] LOW QRS VOLTAGE IN PRECORDIAL LEADS [QRS DEFLECTION < 1.0 mV IN CHEST LEADS] NONSPECIFIC ST AND T-WAVE ABNORMALITY COMPARED TO ECG 01/25/2023 10:18:52 SINUS RHYTHM NOW PRESENT Electronically Signed On 01-25-2023 16:08:19 CDT by Ale Ramírez M.D.
--- NOTE | 2023-01-25 11:00 | ECG_ITS ---
Measurements Intervals [place] Rate: 128 P: [place]: 0 QRS: -35 QRSD: 90 T: 74 QT: 341 QTc: 499 Interpretive Statements ATRIAL FIBRILLATION WITH RAPID VENTRICULAR RESPONSE MARKED LEFT AXIS DEVIATION [QRS AXIS < -30] NONSPECIFIC T-WAVE ABNORMALITY COMPARED TO ECG 01/24/2023 10:28:33 NO SIGNIFICANT CHANGES Electronically Signed On 01-25-2023 16:05:53 CDT by Ale Ramírez M.D.
--- NOTE | 2023-01-25 11:02 | WPDMODSED ---
Moderate Sedation Note-Pt Data Patient Data Diagnosis: Atrial fibrillation with RVR Present Complaint: Atrial fibrillation with RVR Procedure to be performed/Plan: Cardioversion Allergies Allergy/AdvReac Type Severity Reaction Status Date / Time latex Allergy Unknown Rash Verified 01/14/23 11:48 Home Medications Medication Instructions Recorded Confirmed Type apixaban 5 mg tablet (Eliquis) 5 mg PO Q12HR 1 month #60 tabs 12/18/22 01/24/23 Rx lisinopril 10 mg tablet 10 mg PO DAILY 90 days #90 tabs 12/31/22 01/24/23 Rx metoprolol succinate 100 mg 50 mg PO QAM 1 month #30 tabs 01/17/23 01/24/23 Rx tablet,extended release 24 hr (Toprol XL) alprazolam 0.5 mg tablet 0.5 mg PO TID PRN Anxiety 01/24/23 01/24/23 History buspirone 5 mg tablet 5 mg PO DAILY 01/24/23 01/24/23 History hydrochlorothiazide 25 mg tablet 25 mg PO DAILY 01/24/23 01/24/23 History Current Medications: Active Medications Apixaban (Apixaban 5 Mg Tablet) 5 mg PO Q12HR KELLIE Last Admin: 01/25/23 08:14 Dose: 5 mg Buspirone HCl (Buspirone Hcl 5 Mg Tablet) 5 mg PO DAILY KELLIE Last Admin: 01/25/23 08:14 Dose: 5 mg Famotidine (Famotidine 20 Mg/2 Ml Vial) 20 mg IV PUSH Q12HR KELLIE Last Admin: 01/25/23 08:14 Dose: 20 mg Amiodarone HCl/Dextrose (Nexterone 360 Mg/D5w 200 Ml) 360 mg in 200 mls @ 16.667 mls/hr IV CONT .Q12H KELLIE Last Admin: 01/25/23 07:37 Dose: 0.5 mg/min, 16.67 mls/hr Sodium Chloride (Normal Saline Iv) 1,000 mls @ 30 mls/hr IV CONT .Q24H KELLIE Lorazepam (Lorazepam Inj (*Crx) 2 Mg/Ml Vial) 0.5 mg IV PUSH Q6H PRN PRN Reason: Anxiety Last Admin: 01/25/23 08:26 Dose: 0.5 mg Sedation/Anesthesia: No previous sedation/anesthesia problems (including family history). PMFSH Past Medical History Medical History Abnormal mammogram Anxiety Brain aneurysm had coiling done Congestive heart failure Echo 12/17/2022 1. Complete two-dimensional, color flow and Doppler transthoracic echocardiogram is performed. 2. Normal left ventricular size with global systolic function that appears to be mildly reduced. 3. Very small amount of mitral regurgitation. 4. Mildly enlarged RA and RV. 5. Small pericardial effusion which appears to be anterior to the right ventricle. 6. Atrial fibrillation. Left Ventricle Left ventricular chamber dimension is normal. Left ventricular systolic function is mildly reduced, estimated at 40-45%. The left ventricular diastolic function is normal. Depression Diverticulosis Gastric outlet obstruction Gastroesophageal reflux disease without esophagitis GERD (gastroesophageal reflux disease) Hiatal hernia History of cardioversion Hypertension Osteoporosis Positive colorectal cancer screening using Cologuard test Situational depression Surgical History Surgical History Cataract extraction status H/O colonoscopy (~09/2019) repeat 5 years H/O rectal polypectomy H/O: hysterectomy History of appendectomy History of bladder surgery S/P ORIF (open reduction internal fixation) fracture right humerus Family History Family History Father Family history of emphysema Family history of alcoholism Mother Family history of chronic obstructive pulmonary disease Sibling Brain aneurysm Other Family history of dementia Hypertension Social History Social History Social History: She lives at home. She is recently . 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 She does have living will and POA- her daughter, Hallie Stroud. She lost her 2 step children. They not too long ago. code status full code Smoking status: Former smoker Tobacco type: cigarettes Second hand tobacco smoke exposure: Yes Smoking end date: 10/24/96 Alcohol intak
--- NOTE | 2023-01-25 11:17 | WPDCARDVER ---
Cardioversion Cardioversion Date of procedure: 01/25/23 Procedure: Synchronized electrical cardioversion Pre-op diagnosis: Atrial fibrillation with RVR Post-op diagnosis: Other (Sinus rhythm) Indications: Atrial fibrillation with RVR Description of procedure: Informed written consent obtained. Patient brought to the chest pain center. Patient's respiratory status and hemodynamic status was monitored throughout the procedure. Defibrillator pads placed in an anterior-posterior position. Time out performed. Sedation administered. Once patient was adequately sedated, cardioversion was performed with 200 joules, however, patient remained in atrial fibrillation with RVR. A second shock was administered at 250 joules which converted rhythm to sinus rhythm. Post-cardioversion EKG obtained which confirmed sinus rhythm. Sedation: Procedure start time: 11:06 Procedure end time: 11:14 Total of 60mg of Propofol was administered Findings: Successful rastafarian of sinus rhythm after 2 shocks. Conclusion: Successful rastafarian of sinus rhythm after 2 shocks.
--- NOTE | 2023-01-25 11:26 | PM.PNCARD ---
Progress Note: A&P Assessment and Plan (1) Atrial fibrillation with rapid ventricular response: Code(s): I48.91 - Unspecified atrial fibrillation Status: Acute Plan Cardioversion done today with bahai of sinus rhythm after 2 shocks. Stop Amiodarone drip and start oral Amiodarone 200mg PO QD. Patient to be discharged on Amiodarone 200mg PO QD. I do not anticipate patient to be on long-term Amiodarone, but will use for the short term at this time. Continue Eliquis. Continue home Metoprolol. Okay for patient to be discharged home later this afternoon. Will arrange follow-up with patient's primary Lamina Searcher, Dr. Saldaña. Subjective Date/time seen: 01/25/23 11:26 Interval history: Reason for visit: Atrial fibrillation with RVR HPI: Hector Alvarado is a 67 year old female who was recently found to have atrial fibrillation.? Her atrial fibrillation diagnosis was made in the setting of acute illness with COVID.? She had no prior cardiac history.? A rate control and anticoagulation strategy was pursued and after a month of being on anticoagulation, she underwent DCCV on 01/17/2023 with successful bahai of sinus rhythm.? She presented to our office today for a follow up EKG and was found to be back in atrial fibrillation with RVR, rate 171bpm. ? She was taken to the emergency department and admitted for further management.? She denies any palpitations, shortness of breath, chest pain, or swelling.? Has been feeling well since her cardioversion last week.? Date of service 01/25: No acute events overnight. Remains on Amiodarone drip. Remains in atrial fibrillation with RVR. Review of Systems Review of Systems: 8 point ROS obtained. Negative, unless stated in HPI. Exam Const: General: comfortable, no acute distress, alert and awake Orientation/consciousness: patient oriented x3 HENMT: Head: normal to inspection Eyes: General: appearance normal, both eyes and all related structures Sclera: sclerae normal Neck: Neck: normal visual inspection and supple Resp: Effort & Inspection: normal respiratory effort Auscultation: clear to auscultation bilaterally Cardio: Rate: tachycardic Rhythm: abnormal rhythm irregularly irregular Heart sounds: S1 normal heart sound present, S2 normal heart sound present and no murmurs Skin: General skin exam: normal color Neuro: General: patient oriented x3 Speech: normal speech Extrem: General: normal to inspection Psych: Appearance: grossly normal Mental Status: mental status grossly normal Affect: normal affect Objective Data Vital Signs Vital Signs: Vital Signs - 24 hr 01/24/23 11:31 01/24/23 11:31 01/24/23 12:40 Temperature Pulse Rate 138 H 135 H Respiratory Rate 18 21 H Blood Pressure 128/96 H 117/76 Pulse Oximetry 97 98 Oxygen Delivery Oxygen Flow Rate Fraction of Inspired Oxygen 01/24/23 12:48 01/24/23 13:02 01/24/23 13:26 Temperature Pulse Rate 107 H 91 112 H Respiratory Rate 22 H Blood Pressure 117/76 117/76 130/107 H Pulse Oximetry 98 Oxygen Delivery Oxygen Flow Rate Fraction of Inspired Oxygen 01/24/23 14:30 01/24/23 14:00 01/24/23 14:00 Temperature 36.6 C 36.6 C Pulse Rate 111 H 112 H 102 H Respiratory Rate 22 H 18 Blood Pressure 109/82 109/82 Pulse Oximetry 100 99 Oxygen Delivery Oxygen Flow Rate Fraction of Inspired Oxygen 01/24/23 16:00 01/24/23 18:00 01/24/23 16:00 Temperature 36.9 C Pulse Rate 103 H 113 H 96 Respiratory Rate 12 Blood Pressure 98/69 L Pulse Oximetry 97 Oxygen Delivery Oxygen Flow Rate Fraction of Inspired Oxygen 01/24/23 18:41 01/24/23 20:00 01/24/23 20:00 Temperature 36.8 C Pulse Rate 104 H 97 97 Respiratory Rate 14 Blood Pressure 103/73 Pulse Oximetry 97 Oxygen Delivery Oxygen Flow Rate Fraction of Inspired Oxygen 01/24/23 22:00 01/25/23 00:00 01/25/23 00:00 Temperature Pulse Rate 99 105 H 105 H Res
[2023-01-25] MEDS: AMIODARONE HCL 200 MG TABLET PO (11:32)
--- NOTE | 2023-01-25 12:40 | PM.DS ---
DS: Admitting Diagnosis Discharge Date Admitting Diagnosis Afibb with RVR DS: Discharge Diagnosis Discharge Diagnosis (1) Atrial fibrillation with rapid ventricular response: Code(s): I48.91 - Unspecified atrial fibrillation Status: Acute DS: Summary Hospital Course Reason for hospitalization: Afibb with RVR Hospital Course: 67-year-old female patient who has a history of atrial fibrillation.? The patient had a DC cardioversion on 01/17/[address] Monreal.? According to the note it was a successful uncomplicated DC cardioversion terminating atrial fibrillation restoring sinus rhythm with first-degree AV block using 200 joules x1 shock.??The patient was found to be in AFib again with RVR .? She was then sent to the emergency room.?Admitted to ICU, started on amiodarone drip, Cardiology was consulted, underwent DC cardioversion with uatsdin of SR. Discharged home on oral amiodarone with advice to follow up with Cardiology as outpatient. Status at Discharge Functional status at discharge: independent ambulation Overall status at discharge: patient is back to baseline Time Spent with Patient Time attestation: Total time spent providing and/or coordinating discharge services: Time spent: Greater than 30 minutes Exam Const: General: comfortable HENMT: Mouth: Yes moist mucous membranes Eyes: General: appearance normal, both eyes and all related structures Sclera: sclerae normal Neck: Neck: supple Resp: Effort & Inspection: normal respiratory effort Auscultation: clear to auscultation bilaterally Cardio: Rate: regular rate Rhythm: regular rhythm GI: GI Palp: Yes Soft to palpation Auscultation: normal bowel sounds Skin: General skin exam: normal color Extrem: General: normal to inspection Psych: Mental Status: mental status grossly normal DS: Data Data Completed and Pending Labs on day of discharge: Labs from last 24 hours 01/25/23 01/25/23 01/25/23 07:44 07:44 07:44 WBC 7.3 RBC 4.26 Hgb 13.6 Hct 39.3 MCV 92.3 MCH 31.9 MCHC 34.6 RDW 12.6 Plt Count 180 MPV 10.8 H Immature Gran % (Auto) 0.3 Neut % (Auto) 51.5 Lymph % (Auto) 36.3 [place] % (Auto) 9.1 H Eos % (Auto) 1.7 Baso % (Auto) 1.1 Lymph # (Auto) 2.64 [place] # (Auto) 0.7 H Eos # (Auto) 0.1 Baso # (Auto) 0.1 Abs Immat Gran (auto) 0.02 Absolute Neuts (auto) 3.8 Absolute Nucleated RBC 0.0 Nucleated RBC % 0.0 Sodium 138 Potassium 3.8 Chloride 102 Carbon Dioxide 26 Anion Gap 10 BUN 12 Creatinine 0.50 L Estim Creat Clear Calc 100 Estimated GFR > 60 Glucose 108 Calcium 8.7 Magnesium 1.7 Total Bilirubin 0.4 AST 31 ALT 18 Alkaline Phosphatase 41 Total Protein 7.0 Albumin 4.0 TSH (Reflex) 2.410 Discharge Plan Discharge Attending physician on discharge: Amanda Good Consulting providers: Ike Dial Discharging Clinician: Amanda Good Anticipated Discharge Date/Time: 01/25/23 12:38 Patient Disposition: Home, Self-Care Activity: as tolerated Diet: heart healthy Patient Instructions: Antibiotic Form, Apixaban (By mouth) Stand Alone Forms: General Discharge Information Follow-up/Referrals: Keerthi Redding MD [Primary Care Provider] - 1 Week Jd Saldaña MD [Physician] - 2 Weeks Discharge Medications: New amiodarone [Pacerone] 200 mg Tablet 200 mg PO DAILY@0800 Qty: 90 0RF Continued Eliquis 5 mg Tablet 5 mg PO Q12HR 30 Days Qty: 60 0RF metoprolol succinate [Toprol XL] 100 mg Tablet Extended Release 24 Hr 50 mg PO QAM 30 Days Qty: 30 0RF alprazolam 0.5 mg tablet 0.5 mg PO TID PRN (Reason: Anxiety) buspirone 5 mg tablet 5 mg PO DAILY Discontinued lisinopril 10 mg tablet 10 mg PO DAILY 90 Days Qty: 90 0RF hydrochlorothiazide 25 mg tablet 25 mg PO DAILY Date of admission:
== END 2023-01-25 13:54 | disposition home or self-care (01) | DRG 309 ==
LOC: ANHED 13:06 → ANHICU 13:26
PROVIDERS: Internal Medicine; Nurse Practitioner; Admitting Provider Family Medicine; Emergency Provider General Practice; PCP Family Medicine; Visit Provider Internal Medicine
PROC: 5A2204Z Restoration of Cardiac Rhythm, Single (ICD-10-PCS; principal; 2023-01-25 10:30)
DX: I48.91 Unspecified atrial fibrillation (principal); I50.20 Unspecified systolic (congestive) heart failure; I11.0 Hypertensive heart disease with heart failure; K21.9 Gastro-esophageal reflux disease without esophagitis; M81.0 Age-related osteoporosis without current pathological fracture; F32.9 Major depressive disorder, single episode, unspecified; F41.9 Anxiety disorder, unspecified; Z87.891 Personal history of nicotine dependence; Z79.899 Other long term (current) drug therapy; Z91.040 Latex allergy status
CPT/HCPCS: 36415; 71045; 80053; 83735; 83880; 84443; 85025; 85610; 85730; 92960; 93005; 94762; 96361; 96374; 96375; 96376; 99285; A9270; G0378; J0282; J2060; J2704; J7030; J7040

== ENCOUNTER 2023-04-23 10:24 | Outpatient (CLI) | payer MEDICARE, SELFPAY ==
--- NOTE | 2023-04-23 | ECHO_ITS ---
Patient Info Name: Hector Alvarado Age: 68 years : 1955 Gender: Female Ht: 66 in Wt: 180 lbs BSA: 1.97 m2 HR: 71 bpm BP: 137 / 73 mmHg Heart Rhythm: Sinus Rhythm Technical Quality: Fair Exam Date: 04/23/2023 10:46 AM Exam Location: [facility] Patient Status: Outpatient Admit Date: 04/23/2023 Staff Ordering Physician: Jd Saldaña MD Research And Evaluation Analyst: Jenn Mcgee RDCS Attending Provider: Jd Saldaña MD Referring Physician: Piotr BARCENAS; Exam Type: CA echo doppler color flow Study Info Indications - paroxysmal A-fib Complete two-dimensional, color flow and Doppler transthoracic echocardiogram is performed. Summary 1. Complete two-dimensional, color flow and Doppler transthoracic echocardiogram is performed. 2. Left ventricular chamber dimension is normal. 3. Left ventricular systolic function is normal, estimated at 65-70%. 4. There is mildly increased left ventricular wall thickness. 5. Left ventricular septal wall motion is abnormal with septal motion related to bundle branch block. 6. The left ventricular diastolic function is grade I diastolic dysfunction. 7. There is trace mitral valve regurgitation. 8. There is trace tricuspid valve regurgitation. 9. No pulmonary hypertension, estimated pulmonary arterial systolic pressure is 8 mmHg. Left Ventricle Left ventricular chamber dimension is normal. Left ventricular systolic function is normal, estimated at 65-70%. There is mildly increased left ventricular wall thickness. Left ventricular septal wall motion is abnormal with septal motion related to bundle branch block. The left ventricular diastolic function is grade I diastolic dysfunction. Right Ventricle Right ventricular chamber dimension is normal. Right ventricular systolic function is normal. Left Atria Left atrial chamber dimension is normal. Right Atria Right atrial chamber dimension is normal. Aortic Valve The aortic valve is not well visualized. There is no aortic valve stenosis. There is no aortic valve regurgitation. Pulmonic Valve The pulmonic valve is not well visualized. Mitral Valve The mitral valve has normal leaflets. There is trace mitral valve regurgitation. The mitral valve annulus is mildly calcified. Tricuspid Valve The tricuspid valve leaflets are normal. There is trace tricuspid valve regurgitation. No pulmonary hypertension, estimated pulmonary arterial systolic pressure is 8 mmHg. Pericardium/Pleural The pericardium appears epicardial fat pad. There is trivial pericardial effusion. Inferior Vena Cava Normal inferior vena cava with >50% collapse upon inspiration consistent with normal right atrial pressure, 5 mmHg. Aorta The aortic root size at the sinus of Valsalva is normal. There is mild aortic atherosclerosis. Left Ventricular Outflow Tract Name Value Normal LVOT 2D LVOT Diameter 2.0 cm LVOT Doppler LVOT Peak Gradient 7 mmHg LVOT Mean Gradient 4 mmHg LVOT VTI 27 cm LVOT VTI/AV VTI Ratio 0.9 LVOT Stroke Volume 83 ml LVOT CO
== END 2023-04-23 10:25 | disposition home or self-care (01) ==
LOC: ANHCARD 10:26
PROVIDERS: PCP Family Medicine; Visit Provider Specialist
DX: I48.0 Paroxysmal atrial fibrillation (principal)
CPT/HCPCS: 93306